=== PATIENT | male | born 1955 | race Caucasian/White ===

== ENCOUNTER 2017-09-26 09:17 | Outpatient (CLI) | payer OTHER ==
[2017-09-26] MEDS ORDERED: ALBUTEROL NEB 2.5 MG/3 ML INH ONE (10:00)
== END 2017-09-26 09:18 | disposition home or self-care (01) ==
LOC: RT 09:17
PROVIDERS: ATTEND Family Medicine
DX: R06.00 Dyspnea, unspecified (principal)
CPT/HCPCS: 94060; 94664

== ENCOUNTER 2019-10-04 07:06 | Outpatient (CLI) | payer MEDICARE, OTHER ==
[2019-10-04 12:09] LABS: BASOPHILS # (AUTO) 0.1 10^3/uL (0.0-0.1); BASOPHILS % (AUTO) 0.8 %; EOSINOPHILS # (AUTO) 0.2 10^3/uL (0.0-0.7); EOSINOPHILS % (AUTO) 3.2 %; HGB - HEMOGLOBIN 14.2 g/dL (14.0-18.0); LYMPHOCYTES % (AUTO) 33.6 %; MEAN CORPUSCULAR HEMOGLOBIN 31.8 pg (27.0-31.0); MEAN CORPUSCULAR HGB CONC 32.3 g/dL (32.0-36.0); MEAN CORPUSCULAR VOLUME 98.7 fL (80.0-94.0); MEAN PLATELET VOLUME 11.4 fL (7.4-11.4); MONOCYTES # (AUTO) 0.6 10^3/uL (0.0-1.0); MONOCYTES % (AUTO) 9.2 %; NEUTROPHILS # (AUTO) 3.1 10^3/uL (1.5-6.6); NEUTROPHILS % (AUTO) 50.9 %; PLT - PLATELET COUNT 217 10^3/uL (130-450); RED BLOOD COUNT 4.46 10^6/uL (4.70-6.10); RED CELL DISTRIBUTION WIDTH 13.6 % (12.0-15.0)
[2019-10-04 12:43] LABS: ALBUMIN 4.6 g/dL (3.2-5.5); ALBUMIN/GLOBULIN RATIO 1.6 (1.0-2.2); ALKALINE PHOSPHATASE 65 IU/L (42-121); ALT ALANINE AMINOTRANSFERASE 61 IU/L (10-60); AST ASPARTATE AMINOTRANSFERASE 33 IU/L (10-42); BUN - BLOOD UREA NITROGEN 26 mg/dL (6-20); CALCIUM 9.2 mg/dL (8.5-10.3); CARBON DIOXIDE - CO2 27 mmol/L (21-32); CHLORIDE 101 mmol/L (101-111); CHOL/HDL RATIO 5.6 (<5.0); CHOLESTEROL 250 mg/dL; CREATININE 1.1 mg/dL (0.6-1.2); GLUCOSE 179 mg/dL (70-100); HB2 TOTAL 15.4 g/dL; HDL CHOLESTEROL 45 mg/dL; HEMOGLOBIN A1C 0.76 g/dL; HEMOGLOBIN A1C % 6.7 % (4.6-6.2); LDL CHOLESTEROL,CALCULATED 153 mg/dL; LDL/HDL RATIO 3.4 (<3.6); SODIUM 137 mmol/L (135-145); TOTAL PROTEIN 7.4 g/dL (6.7-8.2); VLDL CHOLESTEROL 52 mg/dL
[2019-10-04 13:24] LABS: FREE T4 (FREE THYROXINE) 0.78 ng/dL (0.58-1.64)
== END 2019-10-04 23:59 | disposition home or self-care (01) ==
LOC: LAB.WCP 07:06
PROVIDERS: ATTEND Nurse Practitioner Family
DX: E11.9 Type 2 diabetes mellitus without complications (principal)
CPT/HCPCS: 36415; 80053; 80061; 83036; 83721; 84439; 84443; 85025

== ENCOUNTER 2019-11-10 12:26 | Outpatient (CLI) | payer MEDICARE, OTHER ==
--- NOTE | 2019-11-10 14:07 | CT Report ---
PROCEDURE: CHEST WO INDICATIONS: SHORTNESS OF BREATH, COUGH,COPD TECHNIQUE: Noncontrast 5 mm thick sections acquired from the pulmonary apices to the posterior costophrenic angl es. 7 mm thick coronal and sagittal MIP reformats were then acquired. For radiation dose reduction, the following was used: automated exposure control, adjustment of mA and/or kV according to patient size. COMPARISON: None. FINDINGS: Image quality: Excellent. Lungs and pleura: No acute consolidation. There is severe diffuse bilateral scarring/atelectasis and upper lobe paraseptal emphysema. There are possible areas of early honeycombing seen within the post erior sulci bilaterally. Diffuse peribronchial cuffing suggestive of nonspecific bronchitis and/or reactive airways disease. No pleural effusions or pneumothorax. Central and peripheral airways are patent and normal in calibe r. Mediastinum: Heart size is normal. No pericardial effusion. No mediastinal adenopathy by size crit eria. Thoracic aorta and central pulmonary arteries are normal in size. Esophagus is normal in ginger emely. No hiatal hernia. Bones and chest wall: No suspicious bony lesions. No vertebral body compression fractures. No axil donna or supraclavicular adenopathy by size criteria. The thyroid is normal in size. Hepatic steatosis. IMPRESSION: Severe diffuse interstitial changes, with centrilobular and paraseptal emphysema. Possible areas of e olivier honeycombing seen within both posterior sulci raising the possibility of usual interstitial pneu monia. Comparison with prior studies if obtainable would be helpful, or continued surveillance with C T to assess progression over time. No acute consolidation Reviewed by: Rafi Rider MD on 11/10/2019 2:06 PM PDT Approved by: Rafi Rider MD on 11/10/2019 2:06 PM PDT Station ID: [id number]
== END 2019-11-10 12:27 | disposition home or self-care (01) ==
LOC: DI 12:26
PROVIDERS: ATTEND Nurse Practitioner Family
DX: J43.2 Centrilobular emphysema (principal); Z87.891 Personal history of nicotine dependence; R05 Cough
CPT/HCPCS: 71250

== ENCOUNTER 2020-04-17 07:00 | Outpatient (CLI) | payer MEDICARE, OTHER | END 2020-04-17 23:59 | disposition home or self-care (01) | LOC: COV 07:00 | PROVIDERS: ATTEND Family Medicine | DX: R05 Cough (principal); R06.00 Dyspnea, unspecified; J34.89 Other specified disorders of nose and nasal sinuses; Z20.822 Contact with and (suspected) exposure to COVID-19 ==

== ENCOUNTER 2020-05-03 08:00 | Outpatient (CLI) | payer MEDICARE, OTHER ==
[2020-05-03 18:30] LABS: CALCIUM 9.4 mg/dL (8.5-10.3)
[2020-05-03 19:28] LABS: FREE T4 (FREE THYROXINE) 0.79 ng/dL (0.58-1.64)
[2020-05-03 21:15] LABS: HEMOGLOBIN A1c% 8.6 % (4.27-6.07)
== END 2020-05-03 23:59 | disposition home or self-care (01) ==
LOC: LAB.WCP 08:00
PROVIDERS: ATTEND Nurse Practitioner Family
DX: E11.9 Type 2 diabetes mellitus without complications (principal); R94.6 Abnormal results of thyroid function studies
CPT/HCPCS: 36415; 80048; 83036; 84439; 84443

== ENCOUNTER 2020-05-16 09:22 | Outpatient (CLI) | payer MEDICARE, OTHER ==
--- NOTE | 2020-05-16 17:13 | CT Report ---
PROCEDURE: CHEST WO INDICATIONS: SOB, COUGH, COPD TECHNIQUE: Noncontrast 5 mm thick sections acquired from the pulmonary apices to the posterior costophrenic angl es. 7 mm thick coronal and sagittal MIP reformats were then acquired. For radiation dose reduction, the following was used: automated exposure control, adjustment of mA and/or kV according to patient size. COMPARISON: 11/10/2019 FINDINGS: Image quality: Excellent. Lungs and pleura: No significant change. Advanced centrilobular emphysema. Bibasilar pulmonary fibro sis. No acute airspace consolidation. No suspicious pulmonary nodules. No pleural effusions or pneumo thorax. Central and peripheral airways are patent and normal in caliber. Mediastinum: Heart size is normal. No pericardial effusion. No mediastinal adenopathy by size crit eria. Thoracic aorta and central pulmonary arteries are normal in size. Esophagus is normal in ginger emely. No hiatal hernia. Bones and chest wall: No suspicious bony lesions. No vertebral body compression fractures. No axil donna or supraclavicular adenopathy by size criteria. The thyroid is normal in size. Abdomen: Visualized upper abdominal solid organs and bowel loops demonstrate moderately severe hepat ic steatosis. No other significant findings identified in visualized upper abdominal structures. IMPRESSION: 1. Advanced centrilobular emphysema. 2. Bibasilar pulmonary fibrosis. 3. No significant interval change. 4. No current findings suspicious for malignancy in the chest. Comment: Consider yearly screening lung CT in this individual. Reviewed by: Glenn Vivas MD on 05/16/2020 5:11 PM PST Approved by: Glenn Vivas MD on 05/16/2020 5:11 PM PST Station ID: [id number]
== END 2020-05-16 09:23 | disposition home or self-care (01) ==
LOC: DI 09:22
PROVIDERS: ATTEND Nurse Practitioner Family
DX: J43.2 Centrilobular emphysema (principal); J84.10 Pulmonary fibrosis, unspecified

== ENCOUNTER 2020-05-19 09:13 | Outpatient (CLI) | payer MEDICARE, OTHER ==
[2020-05-19] MEDS ORDERED: ALBUTEROL 1 PUFF INH STA (12:12)
== END 2020-05-19 09:14 | disposition home or self-care (01) ==
LOC: RT 09:13
PROVIDERS: ATTEND Nurse Practitioner Family
DX: J44.9 Chronic obstructive pulmonary disease, unspecified (principal)
CPT/HCPCS: 94060; 94729

== ENCOUNTER 2020-06-21 10:18 | Outpatient (CLI) | payer MEDICARE, OTHER | END 2020-06-21 10:19 | disposition home or self-care (01) | LOC: DI 10:18 | PROVIDERS: ATTEND Internal Medicine Pulmonary Disease | DX: J43.2 Centrilobular emphysema (principal) | CPT/HCPCS: 93306 ==

== ENCOUNTER 2020-07-17 08:00 | Outpatient (CLI) | payer MEDICARE, OTHER ==
[2020-07-17 12:14] LABS: ALBUMIN 4.4 g/dL (3.2-5.5); ALBUMIN/GLOBULIN RATIO 1.4 (1.0-2.2); ALKALINE PHOSPHATASE 58 IU/L (42-121); ALT ALANINE AMINOTRANSFERASE 61 IU/L (10-60); AST ASPARTATE AMINOTRANSFERASE 40 IU/L (10-42); BUN - BLOOD UREA NITROGEN 18 mg/dL (6-20); CALCIUM 9.8 mg/dL (8.5-10.3); CARBON DIOXIDE - CO2 28 mmol/L (21-32); CHLORIDE 101 mmol/L (101-111); CHOL/HDL RATIO 5.7 (<5.0); CHOLESTEROL 246 mg/dL; GFR - MDRD 75 (>89); GLUCOSE 188 mg/dL (70-100); HDL CHOLESTEROL 43 mg/dL; LDL CHOLESTEROL,CALCULATED 164 mg/dL; LDL/HDL RATIO 3.8 (<3.6); POTASSIUM 4.7 mmol/L (3.5-5.0); SODIUM 141 mmol/L (135-145); TOTAL PROTEIN 7.5 g/dL (6.7-8.2); TRIGLYCERIDES 195 mg/dL; VLDL CHOLESTEROL 39 mg/dL
[2020-07-17 12:18] LABS: BASOPHILS # (AUTO) 0.1 10^3/uL (0.0-0.1); BASOPHILS % (AUTO) 0.8 %; EOSINOPHILS # (AUTO) 0.3 10^3/uL (0.0-0.7); EOSINOPHILS % (AUTO) 4.1 %; HCT - HEMATOCRIT 42.9 % (42.0-52.0); HGB - HEMOGLOBIN 14.5 g/dL (14.0-18.0); LYMPHOCYTES # (AUTO) 1.8 10^3/uL (1.5-3.5); LYMPHOCYTES % (AUTO) 28.7 %; MEAN CORPUSCULAR HGB CONC 33.8 g/dL (32.0-36.0); MEAN CORPUSCULAR VOLUME 100.5 fL (80.0-94.0); MEAN PLATELET VOLUME 11.2 fL (7.4-11.4); MONOCYTES # (AUTO) 0.6 10^3/uL (0.0-1.0); MONOCYTES % (AUTO) 9.9 %; NEUTROPHILS # (AUTO) 3.4 10^3/uL (1.5-6.6); NEUTROPHILS % (AUTO) 54.9 %; PLT - PLATELET COUNT 213 10^3/uL (130-450); RED BLOOD COUNT 4.27 10^6/uL (4.70-6.10); RED CELL DISTRIBUTION WIDTH 12.6 % (12.0-15.0); WHITE BLOOD COUNT 6.1 x10^3/uL (4.8-10.8)
[2020-07-17 12:23] LABS: ESTIMATED AVERAGE GLUCOSE 180 mg/dL (70-100); HEMOGLOBIN A1c% 7.9 % (4.27-6.07)
[2020-07-17 12:24] LABS: THYROID STIMULATING HORMONE 6.05 uIU/mL (0.34-5.60)
[2020-07-17 13:01] LABS: FREE T4 (FREE THYROXINE) 0.83 ng/dL (0.58-1.64)
== END 2020-07-17 23:59 | disposition home or self-care (01) ==
LOC: LAB.WCP 08:00
PROVIDERS: ATTEND Nurse Practitioner Family
DX: E78.5 Hyperlipidemia, unspecified (principal); E11.9 Type 2 diabetes mellitus without complications; R94.6 Abnormal results of thyroid function studies
CPT/HCPCS: 36415; 80053; 80061; 83036; 83721; 84439; 84443; 85025

== ENCOUNTER 2020-09-01 19:50 | Outpatient (CLI) | payer MEDICARE, OTHER | END 2020-09-01 19:51 | disposition critical access hospital (66) | LOC: EMS 19:50 | DX: S01.21XA Laceration without foreign body of nose, initial encounter (principal); W18.30XA Fall on same level, unspecified, initial encounter; Y93.89 Activity, other specified; Y92.008 Other place in unspecified non-institutional (private) residence as the place of occurrence of the external cause | CPT/HCPCS: A0425; A0429 ==

== ENCOUNTER 2020-09-01 20:06 | Emergency (ER) | payer MEDICARE, OTHER ==
[2020-09-01 20:40] LABS: BASOPHILS # (AUTO) 0.1 10^3/uL (0.0-0.1); BASOPHILS % (AUTO) 0.8 %; EOSINOPHILS # (AUTO) 0.3 10^3/uL (0.0-0.7); EOSINOPHILS % (AUTO) 4.3 %; HCT - HEMATOCRIT 41.6 % (42.0-52.0); HGB - HEMOGLOBIN 14.5 g/dL (14.0-18.0); LYMPHOCYTES # (AUTO) 2.5 10^3/uL (1.5-3.5); LYMPHOCYTES % (AUTO) 41.4 %; MEAN CORPUSCULAR HEMOGLOBIN 34.5 pg (27.0-31.0); MEAN CORPUSCULAR HGB CONC 34.9 g/dL (32.0-36.0); MEAN PLATELET VOLUME 10.3 fL (7.4-11.4); MONOCYTES # (AUTO) 0.6 10^3/uL (0.0-1.0); MONOCYTES % (AUTO) 10.1 %; NEUTROPHILS # (AUTO) 2.5 10^3/uL (1.5-6.6); NEUTROPHILS % (AUTO) 40.9 %; PLT - PLATELET COUNT 210 10^3/uL (130-450); RED CELL DISTRIBUTION WIDTH 12.4 % (12.0-15.0); WHITE BLOOD COUNT 6.1 x10^3/uL (4.8-10.8)
[2020-09-01] MEDS ORDERED: BACITRACIN ZINC OINT 1 PACKET TOP STA (20:41)
--- NOTE | 2020-09-01 20:45 | ED Physician Documentation ---
History of Present Illness - Stated complaint Stated Complaint: GLF/ HEAD INJ - Chief complaint Chief Complaint: Trauma Hd/Nk - History obtained from History obtained from: Patient - History of Present Illness Timing: Today Pain level max: 7 Pain level now: 5 - Additonal information Additional information: Patient is a 65-year-old male who states that he was at home today when he tripped fell and landed on his face. He states he drinks 1 "50-50 vodka and water" earlier today. He is unsure if he lost consciousness or not. He does have a history of pulmonary fibrosis. No cardiac history. No chest pain. No increased shortness of breath from baseline. No vomiting. Has an abrasion to the bridge of the nose. Tetanus is up-to-date Review of Systems Ten Systems: 10 systems reviewed and negative Constitutional: denies: Fever, Chills Throat: denies: Sore throat Cardiac: denies: Chest pain / pressure, Palpitations Respiratory: denies: Dyspnea, Cough, Wheezing GI: denies: Abdominal Pain, Nausea, Vomiting, Diarrhea Skin: denies: Rash Musculoskeletal: denies: Neck pain, Back pain Neurologic: denies: Headache PD PAST MEDICAL HISTORY - Past Medical History Cardiovascular: High cholesterol Respiratory: COPD Endocrine/Autoimmune: Type 2 diabetes - Past Surgical History Past Surgical History: No Neuro: Other - Present Medications Home Medications: Ambulatory Orders Medication Instructions Recorded Confirmed Albuterol Sulfate [Proair Hfa 2 puffs IH Q4HR PRN 09/01/20 09/01/20 Inhaler] Atorvastatin [Lipitor] 10 mg PO DAILY 09/01/20 09/01/20 Fluticasone/Salmeterol [Advair 2 puffs IH BID 09/01/20 09/01/20 500-50 Diskus] Lisinopril [Zestril] 2.5 mg PO DAILY 09/01/20 09/01/20 Metformin HCl [Metformin ER 1,000 mg PO BID 09/01/20 09/01/20 Osmotic] Omeprazole [PriLOSEC] 20 mg PO DAILY 09/01/20 09/01/20 Ubidecarenone [Co Q-10] 400 mg PO DAILY 09/01/20 09/01/20 - Allergies Allergies/Adverse Reactions: Allergies Allergy/AdvReac Type Severity Reaction Status Date / Time No Known Drug Allergies Allergy Verified 09/01/20 20:19 - Social History Does the pt smoke?: No Smoking Status: Former smoker Does the pt drink ETOH?: Yes Does the pt have substance abuse?: No - Immunizations Immunizations are current?: Yes PD ED PE NORMAL - Vitals Vital signs reviewed: Yes - General General: Alert and oriented X 3, No acute distress, Well developed/nourished, Other (+etoh) - HEENT HEENT: PERRL, Moist mucous membranes, Pharynx benign, Other (abrasion to the bridge of the nose. 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5 H MCHC 34.9 RDW 12.4 Plt Count 210 MPV 10.3 Neut # (Auto) 2.5 Lymph # (Auto) 2.5 [place] # (Auto) 0.6 Eos # (Auto) 0.3 Baso # (Auto) 0.1 Absolute Nucleated RBC 0.00 Nucleated RBC % 0.0 Sodium 138 Potassium 4.0 Chloride 104 Carbon Dioxide 22 Anion Gap 12.0 BUN 16 Creatinine 1.0 Estimated GFR (MDRD) 75 L Glucose 142 H Calcium 9.0 Total Bilirubin 0.8 AST 74 H ALT 106 H Alkaline Phosphatase 58 Total Protein 7.5 Albumin 4.5 Globulin 3.0 Albumin/Globulin Ratio 1.5 Lipase 25 Ethyl Alcohol 201.3 - Rads (name of study) CT head Radiology: Prelim report reviewed, EMP read contemporaneously, See rad report (CT head without acute intracranial abnormalities. Postoperative changes of right sided craniotomy. ) ct maxillofacial Radiology: Prelim report reviewed, EMP read contemporaneously, See rad report (1. Possible nondisplaced fracture involving the root of the bilateral maxillary premolar teeth. 2. Dental caries surrounding the left maxillary molar tooth. 3. No other acute fractures identified ) ct c-spine Radiology: Prelim report reviewed, EMP read contemporaneously, See rad report (Cervical spine without acute fracture. Moderate multilevel cervical spondylosis most pronounced from C4-5 through C7-T1. Straightening of cervical lordosis likely related to patient positioning and/or concurrent muscle spasms. ) PD MEDICAL DECISION MAKING - ED course Complexity details: reviewed results, re-evaluated patient, gonzalez kathrine rene, d/w patient, d/w family ED course: 65-year-old male with a ground-level fall today. No significant lab abnormalities other than alcohol intoxication. Abrasion over the bridge of the nose was repaired with Dermabond. Tolerated well. Wound was cleansed and bandaged. Ambulating without difficulty. We'll have him follow-up with his doctor for further care. Patient will follow up with his dentist for the dental caries that were found on maxillofacial CT. Patient and family counseled regarding signs and symptoms for which I believe and urgent re-evaluation would be necessary. Patient with good understanding of and agreement to plan and is comfortable going home at this time This document was made in part using voice recognition software. While efforts are made to proofread this document, sound alike and grammatical errors may occur. Departure - Departure Disposition: 01 Home, Self Care Clinical Impression: Fall from ground level, Dental cavities Nasal abrasion Qualifiers: Encounter type: initial encounter Qualified Code(s): S00.31XA - Abrasion of nose, initial encounter Alcohol intoxication Qualifiers: Complication of substance-induced condition: uncomplicated Qualified Code(s): F10.920 - Alcohol use, unspecified with intoxication, uncomplicated Condition: Good Instructions: ED Abrasion, ED Cavity Dental, ED Alcohol Intoxication Follow-Up: TIM JEREZ, MSN, AUXILIARY PLANT OPERATOR [Primary Care Provider] - Comments: Your CT scans do not show any acute abnormalities other than dental caries surrounding the left maxillary molar tooth. No other acute fractures. Follow-up with your dentist for the dental caries. Return if you worsen. The abrasion on your nose should heal on its own. The glue will fall off on its own. Do not apply ointment until the glue has fallen off. Discharge Date/Time: 09/01/20 22:23
[2020-09-01 20:50] LABS: ALBUMIN 4.5 g/dL (3.2-5.5); ALBUMIN/GLOBULIN RATIO 1.5 (1.0-2.2); BILIRUBIN,TOTAL 0.8 mg/dL (0.2-1.0); ETOH - ETHANOL 201.3 mg/dL; TOTAL PROTEIN 7.5 g/dL (6.7-8.2)
--- NOTE | 2020-09-01 21:47 | CT Report ---
PROCEDURE: HEAD WO INDICATIONS: fall, head injury TECHNIQUE: Noncontrast 4.5 mm thick angled axial sections acquired from the foramen magnum to the vertex. For r adiation dose reduction, the following was used: automated exposure control, adjustment of mA and/or kV according to patient size. COMPARISON: Prior examinations cannot be secondary to technical issues. FINDINGS: Image quality: Diagnostic. CSF spaces: Basal cisterns are patent. No extra-axial fluid collections. Ventricles are normal in size and shape. Brain: No midline shift. No intracranial masses or hemorrhage. Castillo-white matter interface is norm al. Skull and face: There are postsurgical changes from right craniotomy involving the frontal, parietal , temporal regions. Calvarial fractures. Limited evaluation facial bones are intact, without suspicio us lesions. Sinuses: Visualized sinuses and mastoids are clear. IMPRESSION: CT head without acute intracranial abnormalities. Postoperative changes of right sided craniotomy. No acute calvarial fractures. Reviewed by: Toro Reed MD on 09/01/2020 9:46 PM PDT Approved by: Toro Reed MD on 09/01/2020 9:46 PM PDT Station ID: [id number]
--- NOTE | 2020-09-01 21:50 | CT Report ---
PROCEDURE: CERVICAL SPINE WO INDICATIONS: fall, neck injury TECHNIQUE: Noncontrast 3 mm thick sections acquired from the skull base to the T4 level. Sagittal and coronal r eformats were then constructed. For radiation dose reduction, the following was used: automated exp osure control, adjustment of mA and/or kV according to patient size. COMPARISON: None. FINDINGS: Image quality: Excellent. Bones: No acute compression fractures of the cervical spine. Multilevel cervical spondylosis most pro nounced from C4-5 through C7-T1. Straightening of cervical lordosis. Craniocervical junction is intac t. C1-C2 relationship is preserved. Facets are well aligned. Visualized superior ribs are intact. Soft tissues: Prevertebral soft tissues are normal in thickness. No paravertebral hematomas. No ap ical pneumothoraces. IMPRESSION: Cervical spine without acute fracture. Moderate multilevel cervical spondylosis most pronounced from C4-5 through C7-T1. Straightening of cervical lordosis likely related to patient positioning and/or concurrent muscle spa sms. Reviewed by: Toro Reed MD on 09/01/2020 9:48 PM PDT Approved by: Toro Reed MD on 09/01/2020 9:48 PM PDT Station ID: [id number]
--- NOTE | 2020-09-01 22:00 | CT Report ---
PROCEDURE: MAXILLOFACIAL WO INDICATIONS: fall, facial injuries TECHNIQUE: Noncontrast 1.5 mm thick axial images acquired from the mandible through the frontal sinuses, with co missy and sagittal reformatting. For radiation dose reduction, the following was used: automated ex posure control, adjustment of mA and/or kV according to patient size. COMPARISON: None. FINDINGS: Image quality: Excellent. Bones and teeth: Nondisplaced, fracture involving the root of the left maxillary premolar tooth best seen on sagittal image 59, series 6. There is osseous erosions surrounding the left maxillary molar tooth compatible with a dental caries. Possible nondisplaced fracture involving the root of the right maxillary premolar tooth. This is best seen on coronal image 28, series 5. Moderate degenerative christoph nges of the bilateral temporomandibular joints. Orbital salinas are intact. Sinus salinas show no fractu re or deformity. Nasal bones and septum are intact. Zygomatic arches are intact. Pterygoid plates a re intact. Visualized portions of the skull base and auditory canals are intact. Postsurgical rueda es from right craniotomy. Sinuses: Mild bilateral maxillary sinus mucosal thickening. Remainder the visualized paranasal sinus es appear well aerated. Mastoid air cells are aerated. Soft tissues: No edema, masses, or fluid collections. No enlarged lymph nodes. No soft tissue lace rations or debris. Vascular: Visualized vascular structures appear normal in the absence of contrast. Bony vascular fo ramina and canals are intact. IMPRESSION: 1. Possible nondisplaced fracture involving the root of the bilateral maxillary premolar teeth. 2. Dental caries surrounding the left maxillary molar tooth. 3. No other acute fractures identified Reviewed by: Toro Reed MD on 09/01/2020 9:59 PM PDT Approved by: Toro Reed MD on 09/01/2020 9:59 PM PDT Station ID: [id number]
[2020-09-01 22:19] VITALS: BP 127/78
== END 2020-09-01 22:23 | disposition home or self-care (01) ==
LOC: EDUNIT# → SUPCPDRO 20:06 → ED 20:06
DX: S00.31XA Abrasion of nose, initial encounter (principal); W01.0XXA Fall on same level from slipping, tripping and stumbling without subsequent striking against object, initial encounter; Y92.009 Unspecified place in unspecified non-institutional (private) residence as the place of occurrence of the external cause; F10.920 Alcohol use, unspecified with intoxication, uncomplicated; K02.9 Dental caries, unspecified; M47.12 Other spondylosis with myelopathy, cervical region; J84.10 Pulmonary fibrosis, unspecified; Z87.891 Personal history of nicotine dependence; E11.9 Type 2 diabetes mellitus without complications; Z79.84 Long term (current) use of oral hypoglycemic drugs
CPT/HCPCS: 12011; 36415; 70450; 70486; 72125; 80053; 83690; 85025; 93005; 99284; A9270; G0480; 80320

== ENCOUNTER 2020-09-19 12:26 | Outpatient (CLI) | payer MEDICARE, OTHER | END 2020-09-19 12:27 | disposition home or self-care (01) | LOC: RT 12:26 | PROVIDERS: ATTEND Internal Medicine Pulmonary Disease | DX: J43.2 Centrilobular emphysema (principal) | CPT/HCPCS: 94761 ==

== ENCOUNTER 2020-11-24 09:19 | Outpatient (CLI) | payer MEDICARE, OTHER | END 2020-11-24 09:20 | disposition critical access hospital (66) | LOC: EMS 09:19 | DX: R06.00 Dyspnea, unspecified (principal) | CPT/HCPCS: A0425; A0429 ==

== ENCOUNTER 2020-11-24 09:38 | Inpatient (IN) | payer MEDICARE, OTHER ==
--- NOTE | 2020-11-24 09:50 | ED Physician Documentation ---
PD HPI DYSPNEA - Stated complaint Stated Complaint: C+ - Chief complaint Chief Complaint: Resp - History obtained from History obtained from: Patient - History of Present Illness Timing - onset: How many weeks ago (1) Timing - onset during: Rest Timing - duration: Weeks (1) Timing - details: Gradual onset, Still present Inciting event(s): URI Improved by: O2, Inhaler/neb Worsened by: Exertion, Coughing Associated symptoms: Cough, Hemoptysis, Wheezing. No: Fever, Chest pain / discomfort, Bilateral edema, Unilateral edema Similar symptoms before: Diagnosis (COPD and COVID) Recently seen: Emergency Dept - Additional information Additional information: 65-year-old male who was vaccinated with [employer] in September of this year got into the car with his 2 children drove from [facility] to [facility]. He states that when he got into the [facility] he began to have some difficulty with his breathing and he was evaluated in the emergency department with a bloody nose he was found to be hypoxic and his Covid swab was positive. He has been put on oxygen as an outpatient and he is traveled back home. He is having more trouble now with a cough producing more and more sputum he has had some blood-tinged sputum and this morning he was having difficulty getting any air. He was not able to keep his saturation above 90 with 3 L nasal cannula. Review of Systems Constitutional: reports: Myalgias, Fatigue, Sweats. denies: Fever Eyes: denies: Decreased vision Ears: denies: Ear pain Nose: reports: Congestion Throat: denies: Sore throat Cardiac: denies: Chest pain / pressure, Palpitations Respiratory: reports: Dyspnea, Cough, Wheezing GI: denies: Nausea, Vomiting : denies: Dysuria, Frequency Skin: denies: Rash Musculoskeletal: denies: Neck pain, Back pain, Extremity pain Neurologic: reports: Generalized weakness. denies: Focal weakness, Numbness PD PAST MEDICAL HISTORY - Past Medical History Cardiovascular: High cholesterol Respiratory: COPD Endocrine/Autoimmune: Type 2 diabetes - Past Surgical History Past Surgical History: No Neuro: Other - Present Medications Home Medications: Ambulatory Orders Medication Instructions Recorded Confirmed Albuterol Sulfate [Proair Hfa 2 puffs IH Q4HR PRN 09/01/20 09/01/20 Inhaler] Atorvastatin [Lipitor] 10 mg PO DAILY 09/01/20 09/01/20 Fluticasone/Salmeterol [Advair 2 puffs IH BID 09/01/20 09/01/20 500-50 Diskus] Lisinopril [Zestril] 2.5 mg PO DAILY 09/01/20 09/01/20 Metformin HCl [Metformin ER 1,000 mg PO BID 09/01/20 09/01/20 Osmotic] Omeprazole [PriLOSEC] 20 mg PO DAILY 09/01/20 09/01/20 Ubidecarenone [Co Q-10] 400 mg PO DAILY 09/01/20 09/01/20 - Allergies Allergies/Adverse Reactions: Allergies Allergy/AdvReac Type Severity Reaction Status Date / Time No Known Drug Allergies Allergy Verified 09/01/20 20:19 - Social History Does the pt smoke?: No Smoking Status: Former smoker Does the pt drink ETOH?: Yes Does the pt have substance abuse?: No - Immunizations Immunizations are current?: Yes PD ED PE NORMAL - Vitals Vital signs reviewed: Yes (tachy, tachypneic, hypertensive and hypoxic) - General General: Alert and oriented X 3, Well developed/nourished, Other (flush appearing 65 y/o male struggling for breath is able to speak in multi-word sentences. ) - HEENT HEENT: Atraumatic, PERRL, EOMI, Other (dry mucous membranes ) - Neck Neck: Supple, no meningeal sign, No bony TTP - Cardiac Cardiac: RRR, No murmur - Respiratory Respiratory: No respiratory distress, Other (crackles to the bases bilaterally ) - Abdomen Abdomen: Soft, Non tender - Back Back: No CVA TTP, No spinal TTP - Derm Derm: Normal color, Warm and dry, No rash - Extremities Extremities: No deformity, No edema, No calf tenderness / cord - Neuro Neuro: Alert and oriented X 3, manager plan 2-12 intact, No motor deficit, No sensory deficit, Normal speech Eye Opening: Spontaneous Motor: Obeys Commands Verbal: Oriented GCS Score: 15 - Psych Psych: Normal mood, Normal affect Results - Vitals Vitals: Vital Signs - 24 hr 11/24/20 09:41 Heart Rate 108 H Respiratory 27 H Rate Blood Pressure 138/82 H O2 Saturation 85 L Oxygen O2 Source Room air - Labs Labs: Laboratory Tests 09/10/21 09/10/21 09/10/21 10:10 10:10 10:10 WBC 7.1 RBC 4.22 L Hgb 14.1 Hct 39.9 L MCV 94.5 H MCH 33.4 H MCHC 35.3 RDW 12.2 Plt Count 164 MPV 10.1 Neut # (Auto) 5.9 Lymph # (Auto) 0.8 L [place] # (Auto) 0.3 Eos # (Auto) 0.0 Baso # (Auto) 0.0 Absolute Nucleated RBC 0.00 Nucleated RBC % 0.0 Sodium 136 Potassium 4.0 Chloride 100 L Carbon Dioxide 22 Anion Gap 14.0 H BUN 27 H Creatinine 1.1 Estimated GFR (MDRD) 67 L Glucose 154 H Lactic Acid 1.0 Calcium 9.0 Total Bilirubin 0.9 AST 43 H ALT 60 Alkaline Phosphatase 51 Total Protein 7.7 Albumin 3.8 Globulin 3.9 Albumin/Globulin Ratio 1.0 Lipase 50 - Rads (name of study) chest Radiology: Prelim report reviewed (Impression: 1. Bibasilar reticular interstitial opacities likely corresponding to chronic emphysematous and interstitial changes seen on prior CT. However if there is clinical suspicion for superimposed acute process, further evaluation is recommended with a CT.), EMP read indepedently (Looks like Covid pneumonia), See rad report PD MEDICAL DECISION MAKING - ED course Complexity details: reviewed old records, reviewed results, re-evaluated patient, considered differential, d/w patient ED course: 65-year-old male with a history of COPD who normally uses albuterol and at [facility] has developed Covid and has Covid pneumonia on his chest x-ray today. He is having worsening symptoms with hypoxia and is no longer able to keep up with oxygen requirements with oxygen available at home. At 4 L nasal cannula he is now up to 90%. Departure - Departure Disposition: 65 [facility] DC/Xfer Clinical Impression: Pneumonia due to COVID-19 virus
[2020-11-24 10:19] LABS: BASOPHILS % (AUTO) 0.1 %; HCT - HEMATOCRIT 39.9 % (42.0-52.0); HGB - HEMOGLOBIN 14.1 g/dL (14.0-18.0); LYMPHOCYTES # (AUTO) 0.8 10^3/uL (1.5-3.5); LYMPHOCYTES % (AUTO) 11.5 %; MEAN CORPUSCULAR HEMOGLOBIN 33.4 pg (27.0-31.0); MEAN CORPUSCULAR HGB CONC 35.3 g/dL (32.0-36.0); MEAN CORPUSCULAR VOLUME 94.5 fL (80.0-94.0); MEAN PLATELET VOLUME 10.1 fL (7.4-11.4); MONOCYTES # (AUTO) 0.3 10^3/uL (0.0-1.0); MONOCYTES % (AUTO) 4.7 %; NEUTROPHILS # (AUTO) 5.9 10^3/uL (1.5-6.6); NEUTROPHILS % (AUTO) 82.9 %; PLT - PLATELET COUNT 164 10^3/uL (130-450); RED BLOOD COUNT 4.22 10^6/uL (4.70-6.10); RED CELL DISTRIBUTION WIDTH 12.2 % (12.0-15.0); WHITE BLOOD COUNT 7.1 x10^3/uL (4.8-10.8)
--- NOTE | 2020-11-24 10:22 | XRAY Report ---
PROCEDURE: Chest 1 View X-Ray INDICATIONS: chest pain TECHNIQUE: One view of the chest was acquired. COMPARISON: CT chest 05/16/2020. FINDINGS: Surgical changes and devices: None. Lungs and pleura: There are reticular interstitial opacities within the lung bases corresponding to emphysematous changes and septal thickening in the lung bases on the prior CT. No definite focal cons olidation. No pleural effusions or pneumothorax. Mediastinum: Mediastinal contours appear normal. Heart size is normal. Bones and chest wall: No suspicious bony lesions. Overlying soft tissues appear unremarkable. IMPRESSION: 1. Bibasilar reticular interstitial opacities likely corresponding to chronic emphysematous and inter stitial changes seen on the prior CT. However if there is clinical suspicion for a superimposed acute process, further evaluation is recommended with a CT. Reviewed by: Tigre Sandra MD on 11/24/2020 10:21 AM PDT Approved by: Tigre Sandra MD on 11/24/2020 10:21 AM PDT Station ID: [id number]
[2020-11-24 10:33] LABS: ALBUMIN 3.8 g/dL (3.2-5.5); BILIRUBIN,TOTAL 0.9 mg/dL (0.2-1.0); CREATININE 1.1 mg/dL (0.6-1.2); TOTAL PROTEIN 7.7 g/dL (6.7-8.2)
[2020-11-24] MEDS ORDERED: ONDANSETRON 4 MG/2 ML VIAL IVP PRN (11:22)
[2020-11-24] MEDS ORDERED: SODIUM CHLORIDE FLUSH 0.9% 10 ML SYRINGE IVP PRN (11:22)
[2020-11-24] MEDS ORDERED: ACETAMINOPHEN 325 MG TABLET PO PRN (11:22)
[2020-11-24] MEDS ORDERED: guaiFENesin 100 MG/5 ML UDC PO PRN (11:36)
--- NOTE | 2020-11-24 12:02 | HISTORY & PHYSICAL EXAMINATION ---
Chief Complaint - Chief Complaint Chief Complaint: SOB, cough, COVID (+) History of Present Illness - Admitted From Admitted From:: ED - History Obtained From History obtained from: ED provider and the patient - History of Present Illness HPI Comment/Other: This is a 65 y/o white male with a Hx of pulmonary fibrosis, sleep apnea on CPAP, HTN and NIDDM. He has been vaccinated for COVID with the [employer] form in September (2 mos ago). He has a [place], Dr Maddy Harrington, in [place]. He recently went on a car trip with his 2 adult children to [facility] and [place], [place], where he developed SOB and 2 nose bleeds and went to an ER in [place], [place], where he tested positive for COVID, but was discharged from their ER with "a medicine to help him cough" and new home oxygen. He was advised to return home and quarantine. He tried to stay apart from the 2 children and they all wore masks in the car, and he got home last night, where he was kept isolated from his . He had PND last night and presented to our ER today with c/o worsened SOB and reported he was desaturating to 76% (per his home oximeter), despite being on O2 per n.c. at 3L. He was desaturating to 85% on room air in the ER. His CXR showed bibasilar interstitial changes and emphysematous changes. He is being admitted for COVID pneumonia with hypoxia. He would like to be a FULL CODE, per my discussion with him today. 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 Social History Notes: He quit smoking about 20 years ago. He drinks alcohol occaisionally, no abuse Hx. He uses no recreational drugs. He works part-time as a book kepper, works from home. - Substance History Use: Uses substance without health or social issues: Alcohol - POLST Patient has POLST: No Meds/Allgy - Home Medications Home Medications: Ambulatory Orders Medication Instructions Recorded Confirmed Albuterol Sulfate [Proair Hfa 2 puffs IH Q4HR PRN 09/01/20 11/24/20 Inhaler] Atorvastatin [Lipitor] 10 mg PO DAILY 09/01/20 11/24/20 Fluticasone/Salmeterol [Advair 1 puffs INH BID 09/01/20 11/24/20 500-50 Diskus] Lisinopril [Zestril] 2.5 mg PO DAILY 09/01/20 11/24/20 Metformin HCl [Metformin ER 1,000 mg PO BID 09/01/20 11/24/20 Osmotic] Omeprazole [PriLOSEC] 20 mg PO DAILY 09/01/20 11/24/20 Ubidecarenone [Co Q-10] 400 mg PO DAILY 09/01/20 11/24/20 Dexamethasone [Decadron] 6 mg PO DAILY 11/24/20 11/24/20 - Allergies Allergies/Adverse Reactions: Allergies Allergy/AdvReac Type Severity Reaction Status Date / Time No Known Drug Allergies Allergy Verified 09/01/20 20:19 Review of Systems - Constitutional Constitutional: reports: Chills - Respiratory Respiratory: reports: Cough, Orthopnea, SOB at rest - All Other Systems All Other Systems: reports: Reviewed and negative Exam - Vital Signs Vital Signs: Vital Signs x48h Pulse Resp BP Pulse Ox 11/24/20 09:41 108 H 27 H 138/82 H 85 L - Physical Exam General Appearance: positive: No acute distress, Mild distress (Intermittently tachypneic while speaking) Eyes Bilateral: positive: Normal inspection, PERRL, EOMI ENT: positive: Pharynx nml, No signs of dehydration Neck: positive: Nml inspection, No JVD Respiratory: positive: No respiratory distress, Breath sounds nml Cardiovascular: positive: Regular rate & rhythm, No murmur Abdomen: positive: Non-tender, Nml bowel sounds, No distention Skin: positive: Warm, Dry Extremities: positive: Non-tender, No pedal edema Neurologic/Psychiatric: positive: Oriented x3 (Non-focal) Conclusion/Plan - Problem List (1) Acute respiratory failure with hypoxia Conclusion/Plan: He had significant desaturation and is admitted for managing hypoxia. The underlying reason appears to be the COVID pneumonia on top of his pulmonary fibrosis/COPD. Will give supplemental oxygen, keeping saturations 88% or higher. Treat the COPD and COVID peumonia (2) Pneumonia due to COVID-19 virus Conclusion/Plan: He does not know where he caught it and was vccinated 2 mos ago. Will admit and start Remdesivir, Decadron, Lovenox prophylaxis and Mucinex. Order isolation. Continue his inhalers (3) Tachycardia Conclusion/Plan: Likely related to his resp distress, as there is no cardiac Hx. Will obtain an EKG Will check a set of troponins Order telemetry. (4) Pulmonary fibrosis Conclusion/Plan: He is on several inhalers. These will be ordered to continue. His oral Decadron will now be in the form of IV Decadron for Covid treatment which will also help with underlying pulmonary fibrosis. Continue with supplemental oxygen, keeping saturations greater than 88%. (5) Type 2 diabetes mellitus Conclusion/Plan: Will begin a carb controlled diet, sliding scale insulin coverage using regular insulin, check his A1c and order hypoglycemia protocol. We will hold the Metformin currently (6) HTN (hypertension) Conclusion/Plan: at this point, will stop the CARLITO-I that he is on, since it may be adding to his cough, and use an alternative BP med, such as Losartan or Amlodipine, to be started when BP is elevated, since it currently is "soft". - Lab Results Fish Bones: 11/24/20 10:10 11/24/20 10:10 - Diagnostic Imaging Results Diagnostic Imaging Results: positive: Final report reviewed - EKG Results EKG Interpreted Independently: Yes EKG Comparison: No prior EKG EKG Findings: NSR, WNL.
[2020-11-24] MEDS: INSULIN ASPART 300 UNIT/3 ML PEN SUBQ SCH ×3 (13:32→21:11)
[2020-11-24] MEDS: guaiFENesin 600 MG TABLET PO SCH ×2 (13:33→21:11)
[2020-11-24] MEDS ORDERED: REMDESIVIR 100MG VIAL 200 MG in SODIUM CHLORIDE 0.9% 250 ML IV ONE (14:00)
[2020-11-24] MEDS: SODIUM CHLORIDE FLUSH 0.9% 10 ML SYRINGE IVP SCH (17:29)
[2020-11-24 18:07] LABS: BILIRUBIN,URINE NEGATIVE (NEGATIVE); GLUCOSE, URINE (UA) 100 mg/dL (NEGATIVE); KETONES,URINE (UA) TRACE mg/dL (NEGATIVE); LEUKOCYTE ESTERASE, URINE NEGATIVE (NEGATIVE); NITRITE,URINE NEGATIVE (NEGATIVE); OCCULT BLOOD,URINE TRACE-INTA (NEGATIVE); PROTEIN,URINE 30 mg/dL (NEGATIVE); UROBILINOGEN,URINE 2 E.U./dL (NORMAL)
[2020-11-24 18:10] LABS: CLARITY,URINE CLEAR (CLEAR)
[2020-11-24 18:24] LABS: BACTERIA,URINE None Seen /HPF (None Seen); RBC,URINE 0-5 /HPF (0-5); SQUAMOUS EPITHELIAL CELL,UR RARE Squamous (<= Few); WBC,URINE 0-3 /HPF (0-3)
[2020-11-24] MEDS: ATORVASTATIN 10 MG TABLET PO SCH (21:11)
[2020-11-25 05:41] LABS: BASOPHILS % (AUTO) 0.2 %; HCT - HEMATOCRIT 41.8 % (42.0-52.0); HGB - HEMOGLOBIN 14.3 g/dL (14.0-18.0); LYMPHOCYTES # (AUTO) 1.2 10^3/uL (1.5-3.5); LYMPHOCYTES % (AUTO) 21.9 %; MEAN CORPUSCULAR HEMOGLOBIN 33.1 pg (27.0-31.0); MEAN CORPUSCULAR HGB CONC 34.2 g/dL (32.0-36.0); MEAN CORPUSCULAR VOLUME 96.8 fL (80.0-94.0); MEAN PLATELET VOLUME 9.9 fL (7.4-11.4); MONOCYTES # (AUTO) 0.4 10^3/uL (0.0-1.0); MONOCYTES % (AUTO) 7.7 %; NEUTROPHILS # (AUTO) 3.9 10^3/uL (1.5-6.6); NEUTROPHILS % (AUTO) 68.6 %; PLT - PLATELET COUNT 189 10^3/uL (130-450); RED BLOOD COUNT 4.32 10^6/uL (4.70-6.10); RED CELL DISTRIBUTION WIDTH 12.2 % (12.0-15.0); WHITE BLOOD COUNT 5.6 x10^3/uL (4.8-10.8)
[2020-11-25 05:48] LABS: CALCIUM 8.7 mg/dL (8.5-10.3); CREATININE 0.8 mg/dL (0.6-1.2); MAGNESIUM 1.9 mg/dL (1.7-2.8); POTASSIUM 4.3 mmol/L (3.5-5.0)
[2020-11-25] MEDS: PANTOPRAZOLE 40 MG TABLET PO SCH (07:05)
[2020-11-25 07:13] LABS: ESTIMATED AVERAGE GLUCOSE 157 mg/dL (70-100); HEMOGLOBIN A1c% 7.1 % (4.27-6.07)
[2020-11-25] MEDS: INSULIN ASPART 300 UNIT/3 ML PEN SUBQ SCH ×4 (08:18→21:09)
[2020-11-25] MEDS: SODIUM CHLORIDE FLUSH 0.9% 10 ML SYRINGE IVP SCH ×3 (08:22→17:03)
[2020-11-25] MEDS ORDERED: UBIDECARENONE 400 MG PO SCH (09:00)
[2020-11-25] MEDS: CHOLECALCIFEROL 5,000 UNIT CAPSULE PO SCH (09:31)
[2020-11-25] MEDS: REMDESIVIR 100MG VIAL 100 MG in SODIUM CHLORIDE 0.9% 100ML 100 ML IV SCH (09:32)
[2020-11-25] MEDS: DEXAMETHASONE 4 MG/ML VIAL IVP SCH (09:32)
[2020-11-25] MEDS: guaiFENesin 600 MG TABLET PO SCH ×2 (09:32→21:09)
[2020-11-25] MEDS: ENOXAPARIN 40 MG/0.4 ML SYRINGE SUBQ SCH (09:32)
--- NOTE | 2020-11-25 12:00 | PROVIDER PROGRESS NOTE ---
Assessment/Plan - Problem List (1) Acute respiratory failure with hypoxia Assessment/Plan: He presented with increases SOB after positive COVID test and intial home management with oxygen therapy. Has history of pulmonary fibrosis/ COPD. Pt COVID vaccinated. Today he is on oxymizer 5L/min with bedside saturation 99- 100%. Breath sounds clear, with fine inspiratory crackles in left base. Strong productive cough, using IS. Plan: Wean oxygen to keep saturations greater than 88% or higher. Monitor and treat COVID pneumonia. Monitor and treat COPD. Resume home Advir. (2) COVID-19 Assessment/Plan: Unsure of exposure to COVID but began feeling SOB while on a family road trip to [place]. Was seen in hospital there where he was given decadron po and oxygen and discharged. Presented to hospital with increased SOB and low home oxygen saturations. He was vaccinated 2 months ago. Plan: Continue Remdesivir day 2 of 5, and Decadron day 2 of 10. Continue Lovenox prophylaxis. Continue Mucinex for cough. (3) Pulmonary fibrosis Assessment/Plan: Hx of pulmonary fibrosis. On oxymizer 5L/min and tolerating well. Denies SOB and bedside oxygen saturation is 99-100%. He is on several inhalers. These will be ordered to continue. Plan: Oral Decadron changed to IV form. Continue home Advir and Albuterol. Continue to monitor bedside oxygen saturation. Administer oxygen to keep saturations greater than 88%. (4) Type 2 diabetes mellitus Assessment/Plan: Hx of DM Type II on Metformin. A1C 7.1. Plan: Carb controlled diet. Discontinue Metformin while hospitalized. Monitor glucose AC/ HS and treat per sliding scale. (5) HTN (hypertension) Assessment/Plan: History of HTN with Lisinopril for home management. Medication discontinued yesterday due to frequent side effect of cough. SBP 110-130s. Plan: Continue to monitor BP and consider adding Losrtan or Amlodipine if pt becomes hypertensive. Consider resuming lisinopril upon discharge if cough has improved and hypertensive. (6) Sleep apnea Assessment/Plan: Pt has a Hx of sleep apnea and uses home CPAP. Plan: Order home CPAP for hospital use. (7) Tachycardia Assessment/Plan: Tachycardia resolved. Admission EKG showed NSR. Today HR is NSR 80s. Tachycardia most likely due to distress of hypoxia. - Current Meds Current Meds: Current Medications Generic Name Dose Route Start Last Admin Trade Name Freq PRN Reason Stop Dose Admin Acetaminophen 650 mg 11/24/20 11:22 11/24/20 17:30 Acetaminophen 325 Mg Tablet PO 650 mg Q4HR PRN Administration Pain or Fever > 38C (100.4F) Atorvastatin Calcium 10 mg 11/24/20 21:00 11/24/20 21:11 Atorvastatin 10 Mg Tablet PO 10 mg QPM JESUS Administration Cholecalciferol 5,000 unit 11/25/20 09:00 11/25/20 09:31 Cholecalciferol 5,000 Unit Capsule PO 5,000 unit DAILY JESUS Administration Dexamethasone 6 mg 11/25/20 09:00 11/25/20 09:32 Dexamethasone 4 Mg/Ml Vial IVP 6 mg DAILY JESUS Administration Enoxaparin Sodium 40 mg 11/25/20 09:00 11/25/20 09:32 Enoxaparin 40 Mg/0.4 Ml Syringe SUBQ 40 mg DAILY JESUS Administration Guaifenesin 600 mg 11/24/20 14:00 11/25/20 09:32 Guaifenesin 600 Mg Tablet PO 600 mg BID JESUS Administration Remdesivir 100 mg/ Sodium 100 mls @ 200 mls/hr 11/25/20 09:00 11/25/20 10:10 Chloride IV 11/28/20 09:29 Infused DAILY JESUS Infusion Insulin Aspart 1 - 5 unit 11/24/20 13:00 11/25/20 08:18 Insulin Aspart 300 Unit/3 Ml Pen SUBQ 1 unit 0800,1200,1700,2100 JESUS Administration Protocol Pantoprazole Sodium 40 mg 11/25/20 07:00 11/25/20 07:05 Pantoprazole 40 Mg Tablet PO 40 mg QDAC JESUS Administration Sodium Chloride 10 ml 11/24/20 17:00 11/25/20 09:32 Sodium Chloride Flush 0.9% 10 Ml Syringe IVP 10 ml 0100,0900,1700 JESUS Administration - Lab Result Fish Bone Diagrams: 11/25/20 05:19 11/25/20 05:19 Subjective - Subjective Patient Reports: Feeling Better, Resting Comfortably (Denies shortness of breath. Talking comfortably on phone with . Reports intermittent productive cough.) Nursing Reports: No Complaints Objective Vital Signs: Vital Signs - 24 hr 11/24/20 11/24/20 11/24/20 13:00 17:00 19:05 Temperature 38.1 C H 38.1 C H 36.7 C Heart Rate [ 99 85 Brachial] Respiratory 30 H 28 H Rate Blood Pressure 119/52 L 130/71 [Left Brachial artery] Blood Pressure [Right Brachial ] O2 Saturation 92 94 11/24/20 11/24/20 11/25/20 20:46 23:34 05:00 Temperature 36.6 C 36.9 C 36.9 C Heart Rate [ 80 78 86 Brachial] Respiratory 20 16 20 Rate Blood Pressure 126/73 121/62 [Left Brachial artery] Blood Pressure 119/71 [Right Brachial ] O2 Saturation 92 97 94 11/25/20 11/25/20 11/25/20 08:12 08:24 08:29 Temperature 36.5 C Heart Rate [ 84 Brachial] Respiratory 20 Rate Blood Pressure [Left Brachial artery] Blood Pressure 128/67 [Right Brachial ] O2 Saturation 86 L 89 L Oxygen O2 Source Oxymizer Oxygen Flow Rate 4 I&O (Last 24 Hrs): Intake and Output Totals x24h 11/23/20 11/24/20 11/25/20 23:59 23:59 23:59 Intake Total 1080 520 Output Total 300 650 Balance 780 -130 General: Alert, Oriented x3, Cooperative, No acute distress HEENT: PERRLA, Mucous membr. moist/pink Neck: Supple, No JVD Neuro: Alert, Oriented Times 3 Cardiovascular: Regular rate, Normal S1, Normal S2, No murmurs Respiratory: Chest non-tender, No respiratory distress, Other (Fine rales to left lower lobe.) Abdomen: Normal bowel sounds Genitourinary: Normal Inspection Extremities: No clubbing, No cyanosis, No edema, Normal pulses, No tend erness/swelling Skin: No rashes - Results Results: Laboratory Results WBC 5.6 x10^3/uL (4.8-10.8) 11/25/20 05:19 RBC 4.32 10^6/uL (4.70-6.10) L 11/25/20 05:19 Hgb 14.3 g/dL (14.0-18.0) 11/25/20 05:19 Hct 41.8 % (42.0-52.0) L 11/25/20 05:19 MCV 96.8 fL (80.0-94.0) H 11/25/20 05:19 MCH 33.1 pg (27.0-31.0) H 11/25/20 05:19 MCHC 34.2 g/dL (32.0-36.0) 11/25/20 05:19 RDW 12.2 % (12.0-15.0) 11/25/20 05:19 Plt Count 189 10^3/uL (130-450) 11/25/20 05:19 MPV 9.9 fL (7.4-11.4) 11/25/20 05:19 Neut # (Auto) 3.9 10^3/uL (1.5-6.6) 11/25/20 05:19 Lymph # (Auto) 1.2 10^3/uL (1.5-3.5) L 11/25/20 05:19 [place] # (Auto) 0.4 10^3/uL (0.0-1.0) 11/25/20 05:19 Eos # (Auto) 0.0 10^3/uL (0.0-0.7) 11/25/20 05:19 Baso # (Auto) 0.0 10^3/uL (0.0-0.1) 11/25/20 05:19 Absolute Nucleated RBC 0.00 x10^3/uL 11/25/20 05:19 Nucleated RBC % 0.0 /100WBC 11/25/20 05:19 INR (Fingerstick) 1.1 (0.8-1.2) 11/25/20 11:02 Sodium 135 mmol/L (135-145) 11/25/20 05:19 Potassium 4.3 mmol/L (3.5-5.0) 11/25/20 05:19 Chloride 99 mmol/L (101-111) L 11/25/20 05:19 Carbon Dioxide 24 mmol/L (21-32) 11/25/20 05:19 Anion Gap 12.0 (6-13) 11/25/20 05:19 BUN 26 mg/dL (6-20) H 11/25/20 05:19 Creatinine 0.8 mg/dL (0.6-1.2) 11/25/20 05:19 Estimated GFR (MDRD) 97 (>89) 11/25/20 05:19 Glucose 127 mg/dL (70-100) H 11/25/20 05:19 Estimat Average Glucose 157 mg/dL (70-100) H 11/25/20 05:19 Hemoglobin A1c % 7.1 % (4.27-6.07) H 11/25/20 05:19 Lactic Acid 1.0 mmol/L (0.5-2.2) 11/24/20 10:10 Calcium 8.7 mg/dL (8.5-10.3) 11/25/20 05:19 Magnesium 1.9 mg/dL (1.7-2.8) 11/25/20 05:19 Total Bilirubin 0.9 mg/dL (0.2-1.0) 11/24/20 10:10 AST 43 IU/L (10-42) H 11/24/20 10:10 ALT 60 IU/L (10-60) 11/24/20 10:10 Alkaline Phosphatase 51 IU/L (42-121) 11/24/20 10:10 Total Protein 7.7 g/dL (6.7-8.2) 11/24/20 10:10 Albumin 3.8 g/dL (3.2-5.5) 11/24/20 10:10 Globulin 3.9 g/dL (2.1-4.2) 11/24/20 10:10 Albumin/Globulin Ratio 1.0 (1.0-2.2) 11/24/20 10:10 Lipase 50 U/L (22-51) 11/24/20 10:10 Urine Color YELLOW 11/24/20 17:59 Urine Clarity CLEAR (CLEAR) 11/24/20 17:59 Urine pH 6.0 PH (5.0-7.5) 11/24/20 17:59 Ur Specific [place] 1.025 (1.002-1.030) 11/24/20 17:59 Urine Protein 30 mg/dL (NEGATIVE) H 11/24/20 17:59 Urine Glucose (UA) 100 mg/dL (NEGATIVE) H 11/24/20 17:59 Urine Ketones TRACE mg/dL (NEGATIVE) 11/24/20 17:59 Urine Occult Blood TRACE-INTA (NEGATIVE) 11/24/20 17:59 Urine Nitrite NEGATIVE (NEGATIVE) 11/24/20 17:59 Urine Bilirubin NEGATIVE (NEGATIVE) 11/24/20 17:59 Urine Urobilinogen 2 E.U./dL (NORMAL) H 11/24/20 17:59 Ur Leukocyte Esterase NEGATIVE (NEGATIVE) 11/24/20 17:59 Urine RBC 0-5 /HPF (0-5) 11/24/20 17:59 Urine WBC 0-3 /HPF (0-3) 11/24/20 17:59 Ur Squamous Epith Cells RARE Squamous (<= Few) 11/24/20 17:59 Urine Bacteria None Seen /HPF (None Seen) 11/24/20 17:59 Ur Microscopic Review INDICATED 11/24/20 17:59 Urine Culture Comments NOT INDICATED 11/24/20 17:59 ABX Reporting Has patient been on IV antibiotics over the past 48 hours?: No
[2020-11-25] MEDS: FLUTICASONE/SALMETEROL 500/50 INHALER INH SCH ×2 (14:36→21:30)
[2020-11-25] MEDS: ATORVASTATIN 10 MG TABLET PO SCH (21:09)
[2020-11-26] MEDS: SODIUM CHLORIDE FLUSH 0.9% 10 ML SYRINGE IVP SCH ×3 (02:00→17:16)
[2020-11-26 05:51] LABS: BASOPHILS % (AUTO) 0.2 %; HGB - HEMOGLOBIN 14.1 g/dL (14.0-18.0); LYMPHOCYTES % (AUTO) 20.7 %; MEAN CORPUSCULAR HEMOGLOBIN 32.9 pg (27.0-31.0); MEAN CORPUSCULAR HGB CONC 34.4 g/dL (32.0-36.0); MEAN CORPUSCULAR VOLUME 95.6 fL (80.0-94.0); MEAN PLATELET VOLUME 10.2 fL (7.4-11.4); MONOCYTES % (AUTO) 9.6 %; PLT - PLATELET COUNT 227 10^3/uL (130-450); RED BLOOD COUNT 4.29 10^6/uL (4.70-6.10); RED CELL DISTRIBUTION WIDTH 12.2 % (12.0-15.0); WHITE BLOOD COUNT 5.2 x10^3/uL (4.8-10.8)
[2020-11-26 05:56] LABS: ABNORMAL LYMPHS % (MANUAL) 0 %; BAND NEUTROPHILS % (MANUAL) 0 %
[2020-11-26 05:58] LABS: CALCIUM 8.8 mg/dL (8.5-10.3); CREATININE 0.9 mg/dL (0.6-1.2); MAGNESIUM 2.1 mg/dL (1.7-2.8); POTASSIUM 4.3 mmol/L (3.5-5.0)
[2020-11-26 06:18] LABS: DIFFERENTIAL COMMENT MANUAL DIFFERENTIAL; LYMPHOCYTES # (MANUAL) 0.9 10^3/uL (1.5-3.5); LYMPHOCYTES % (MANUAL) 18 %; MONOCYTES # (MANUAL) 0.5 10^3/uL (0.0-1.0); NEUTROPHILS # (MANUAL) 3.8 10^3/uL (1.5-6.6); PLATELET ESTIMATE, MANUAL NORMAL (130-450,000) (NORMAL); PLATELET MORPHOLOGY NORMAL APPEARANCE (NORMAL); RBC MORPHOLOGY (MULTIPLE) NORMAL APPEARANCE (NORMAL); WBC MORPHOLOGY (MULTIPLE) NORMAL APPEARANCE (NORMAL)
[2020-11-26] MEDS ORDERED: INSULIN ASPART 300 UNIT/3 ML PEN SUBQ SCH (08:00)
[2020-11-26] MEDS: DEXAMETHASONE 4 MG/ML VIAL IVP SCH (08:14)
[2020-11-26] MEDS: CHOLECALCIFEROL 5,000 UNIT CAPSULE PO SCH (08:14)
[2020-11-26] MEDS: ENOXAPARIN 40 MG/0.4 ML SYRINGE SUBQ SCH (08:14)
[2020-11-26] MEDS: REMDESIVIR 100MG VIAL 100 MG in SODIUM CHLORIDE 0.9% 100ML 100 ML IV SCH (08:14)
[2020-11-26] MEDS: guaiFENesin 600 MG TABLET PO SCH ×2 (08:14→20:47)
[2020-11-26] MEDS: ALBUTEROL 1 PUFF INH PRN ×2 (08:16→20:55)
[2020-11-26] MEDS: FLUTICASONE/SALMETEROL 500/50 INHALER INH SCH ×2 (08:16→20:55)
[2020-11-26] MEDS: INSULIN ASPART 300 UNIT/3 ML PEN SUBQ SCH ×3 (11:58→20:47)
--- NOTE | 2020-11-26 14:45 | PHARMACY PROGRESS NOTE ---
- Best Possible Medication History Admit Date and Time: 11/24/20 1122 Processed by: Nursing Medication History completed: Yes As the person ultimately responsible for medication therapy, providers are able to order a medication from an existing home medication list in [facility] via the "Reconcile Routine" prior to Confirmation of that medication by passport support manager. Such practice is discouraged except when the physician, in their clinical judgment, deems that a medical need exists for a medication without regard to previous use.
[2020-11-26] MEDS: PANTOPRAZOLE 40 MG TABLET PO SCH (16:31)
--- NOTE | 2020-11-26 18:48 | PROVIDER PROGRESS NOTE ---
Assessment/Plan - Problem List (1) Acute respiratory failure with hypoxia Assessment/Plan: Continue with supplemental oxygen and treating the underlying problem which is the Covid pneumonia on top of his pulmonary fibrosis. All O2 sat is 88% and higher (2) Pneumonia due to COVID-19 virus Assessment/Plan: Cont with Remdesivir, IV Decadron, Mucinex, incentive spirometry, proning and supplemental oxygen (3) Pulmonary fibrosis Assessment/Plan: As per history. He reports that his associate professor of management has told him in the past (before doug Covid) that he will need to be on oxygen Continue with inhaler treatments (4) Type 2 diabetes mellitus Assessment/Plan: His A1c is 7.1. He told me that his A1c has been running 6-7 and that he has stopped needing to do fingerstick checks even at home Continue with sliding scale insulin coverage. Metformin has been on hold while here in case he needs imaging using dye (5) HTN (hypertension) Assessment/Plan: Are ordered to resume here with holding parameters (6) Tachycardia Assessment/Plan: Resolved - Current Meds Current Meds: Current Medications Generic Name Dose Route Start Last Admin Trade Name Freq PRN Reason Stop Dose Admin Acetaminophen 650 mg 11/24/20 11:22 11/24/20 17:30 Acetaminophen 325 Mg Tablet PO 650 mg Q4HR PRN Administration Pain or Fever > 38C (100.4F) Albuterol 2 puffs 11/24/20 12:53 11/26/20 08:16 Albuterol 1 Puff INH 2 puffs Q4HR PRN Administration Wheezing Atorvastatin Calcium 10 mg 11/24/20 21:00 11/25/20 21:09 Atorvastatin 10 Mg Tablet PO 10 mg QPM JESUS Administration Cholecalciferol 5,000 unit 11/25/20 09:00 11/26/20 08:14 Cholecalciferol 5,000 Unit Capsule PO 5,000 unit DAILY JESUS Administration Dexamethasone 6 mg 11/25/20 09:00 11/26/20 08:14 Dexamethasone 4 Mg/Ml Vial IVP 6 mg DAILY JESUS Administration Enoxaparin Sodium 40 mg 11/25/20 09:00 11/26/20 08:14 Enoxaparin 40 Mg/0.4 Ml Syringe SUBQ 40 mg DAILY JESUS Administration Guaifenesin 600 mg 11/24/20 14:00 11/26/20 08:14 Guaifenesin 600 Mg Tablet PO 600 mg BID JESUS Administration Remdesivir 100 mg/ Sodium 100 mls @ 200 mls/hr 11/25/20 09:00 11/26/20 09:00 Chloride IV 11/28/20 09:29 Infused DAILY JESUS Infusion Insulin Aspart 2 - 10 unit 11/26/20 12:00 11/26/20 17:12 Insulin Aspart 300 Unit/3 Ml Pen SUBQ 10 unit 0800,1200,1700,2100 JESUS Administration Protocol Pantoprazole Sodium 40 mg 11/25/20 07:00 11/26/20 16:31 Pantoprazole 40 Mg Tablet PO Not Given QDAC JESUS Fluticasone/Salmeterol 1 puffs 11/25/20 11:00 11/26/20 08:16 Fluticasone/Salmeterol 500/50 Inhaler INH 1 puffs RTBID JESUS Administration Sodium Chloride 10 ml 11/24/20 17:00 11/26/20 17:16 Sodium Chloride Flush 0.9% 10 Ml Syringe IVP 10 ml 0100,0900,1700 JESUS Administration - Lab Result Fish Bone Diagrams: 11/26/20 05:10 11/26/20 05:10 - Additional Planning My Orders: My Active Orders 11/25/20 21:19 RT [Nebulizer/MDI Tx.] [RC] .bid 11/26/20 12:00 Insulin Aspart [NovoLOG] 2 - 10 unit SUBQ 0800,1200,1700,2100 11/26/20 21:00 Insulin Aspart [NovoLOG] 3 - 11 unit SUBQ 0800,1200,1700,2100 11/27/20 05:00 BMP - BASIC METABOLIC PANEL [CHEM] DAILYLAB CBC - COMP BLD CT W/AUTO DIFF [HEME] DAILYLAB 11/28/20 05:00 BMP - BASIC METABOLIC PANEL [CHEM] DAILYLAB CBC - COMP BLD CT W/AUTO DIFF [HEME] DAILYLAB Subjective - Subjective Patient Reports: Feeling Better (He is less short of breath and has much less coughing he reports) Nursing Reports: Other (The oxygen needs are between 2 L and 4 L per NC) Objective Vital Signs: Vital Signs - 24 hr 11/25/20 11/25/20 11/26/20 20:41 21:15 01:00 Temperature 36.6 C 36.4 C L Heart Rate 77 Heart Rate [ 76 86 Brachial] Respiratory 16 22 20 Rate Blood Pressure 136/79 H 134/73 H [Left Brachial artery] Blood Pressure [Right Brachial ] O2 Saturation 99 100 11/26/20 11/26/20 11/26/20 07:34 08:16 11:09 Temperature 36.4 C L 36.4 C L Heart Rate 90 Heart Rate [ 90 77 Brachial] Respiratory 20 14 20 Rate Blood Pressure 129/72 [Left Brachial artery] Blood Pressure 125/70 [Right Brachial ] O2 Saturation 98 100 11/26/20 11/26/20 11/26/20 13:16 16:52 17:24 Temperature 36.4 C L 36.8 C Heart Rate 90 Heart Rate [ Brachial] Respiratory 20 16 Rate Blood Pressure [Left Brachial artery] Blood Pressure 116/70 [Right Brachial ] O2 Saturation 92 96 Oxygen O2 Source Nasal cannula Oxygen Flow Rate 4 I&O (Last 24 Hrs): Intake and Output Totals x24h 11/24/20 11/25/20 11/26/20 23:59 23:59 23:59 Intake Total 1080 1600 1100 Output Total 300 1050 Balance 191 193 7894 General: Alert, Oriented x3 HEENT: Mucous membr. moist/pink Neuro: Alert, Non Focal Cardiovascular: Regular rate Respiratory: Other (Not auscultated) Abdomen: Soft Extremities: No edema - Results Results: Laboratory Results WBC 5.2 x10^3/uL (4.8-10.8) 11/26/20 05:10 RBC 4.29 10^6/uL (4.70-6.10) L 11/26/20 05:10 Hgb 14.1 g/dL (14.0-18.0) 11/26/20 05:10 Hct 41.0 % (42.0-52.0) L 11/26/20 05:10 MCV 95.6 fL (80.0-94.0) H 11/26/20 05:10 MCH 32.9 pg (27.0-31.0) H 11/26/20 05:10 MCHC 34.4 g/dL (32.0-36.0) 11/26/20 05:10 RDW 12.2 % (12.0-15.0) 11/26/20 05:10 Plt Count 227 10^3/uL (130-450) 11/26/20 05:10 MPV 10.2 fL (7.4-11.4) 11/26/20 05:10 Neut # (Auto) Not Reportable 11/26/20 05:10 Lymph # (Auto) Not Reportable 11/26/20 05:10 [place] # (Auto) Not Reportable 11/26/20 05:10 Eos # (Auto) Not Reportable 11/26/20 05:10 Baso # (Auto) Not Reportable 11/26/20 05:10 Absolute Nucleated RBC Not Reportable 11/26/20 05:10 Total Counted 100 11/26/20 05:10 Band Neuts % (Manual) 0 % (0-10) 11/26/20 05:10 Abnorm Lymph % (Manual) 0 % 11/26/20 05:10 Nucleated RBC % Not Reportable 11/26/20 05:10 Neutrophils # (Manual) 3.8 10^3/uL (1.5-6.6) 11/26/20 05:10 Lymphocytes # (Manual) 0.9 10^3/uL (1.5-3.5) L 11/26/20 05:10 Monocytes # (Manual) 0.5 10^3/uL (0.0-1.0) 11/26/20 05:10 Eosinophils # (Manual) 0.0 10^3/uL (0-0.7) 11/26/20 05:10 Basophils # (Manual) 0.0 10^3/uL (0-0.1) 11/26/20 05:10 Differential Comment MANUAL DIFFERENTIAL 11/26/20 05:10 WBC Morphology NORMAL APPEARANCE (NORMAL) 11/26/20 05:10 Platelet Estimate NORMAL (130-450,000) (NORMAL) 11/26/20 05:10 Platelet Morphology NORMAL APPEARANCE (NORMAL) 11/26/20 05:10 RBC Morph Micro Appear NORMAL APPEARANCE (NORMAL) 11/26/20 05:10 INR (Fingerstick) 1.1 (0.8-1.2) 11/25/20 11:02 Sodium 135 mmol/L (135-145) 11/26/20 05:10 Potassium 4.3 mmol/L (3.5-5.0) 11/26/20 05:10 Chloride 100 mmol/L (101-111) L 11/26/20 05:10 Carbon Dioxide 23 mmol/L (21-32) 11/26/20 05:10 Anion Gap 12.0 (6-13) 11/26/20 05:10 BUN 28 mg/dL (6-20) H 11/26/20 05:10 Creatinine 0.9 mg/dL (0.6-1.2) 11/26/20 05:10 Estimated GFR (MDRD) 84 (>89) L 11/26/20 05:10 Glucose 247 mg/dL (70-100) H 11/26/20 05:10 Estimat Average Glucose 157 mg/dL (70-100) H 11/25/20 05:19 Hemoglobin A1c % 7.1 % (4.27-6.07) H 11/25/20 05:19 Lactic Acid 1.0 mmol/L (0.5-2.2) 11/24/20 10:10 Calcium 8.8 mg/dL (8.5-10.3) 11/26/20 05:10 Magnesium 2.1 mg/dL (1.7-2.8) 11/26/20 05:10 Total Bilirubin 0.9 mg/dL (0.2-1.0) 11/24/20 10:10 AST 43 IU/L (10-42) H 11/24/20 10:10 ALT 60 IU/L (10-60) 11/24/20 10:10 Alkaline Phosphatase 51 IU/L (42-121) 11/24/20 10:10 Total Protein 7.7 g/dL (6.7-8.2) 11/24/20 10:10 Albumin 3.8 g/dL (3.2-5.5) 11/24/20 10:10 Globulin 3.9 g/dL (2.1-4.2) 11/24/20 10:10 Albumin/Globulin Ratio 1.0 (1.0-2.2) 11/24/20 10:10 Lipase 50 U/L (22-51) 11/24/20 10:10 Urine Color YELLOW 11/24/20 17:59 Urine Clarity CLEAR (CLEAR) 11/24/20 17:59 Urine pH 6.0 PH (5.0-7.5) 11/24/20 17:59 Ur Specific [place] 1.025 (1.002-1.030) 11/24/20 17:59 Urine Protein 30 mg/dL (NEGATIVE) H 11/24/20 17:59 Urine Glucose (UA) 100 mg/dL (NEGATIVE) H 11/24/20 17:59 Urine Ketones TRACE mg/dL (NEGATIVE) 11/24/20 17:59 Urine Occult Blood TRACE-INTA (NEGATIVE) 11/24/20 17:59 Urine Nitrite NEGATIVE (NEGATIVE) 11/24/20 17:59 Urine Bilirubin NEGATIVE (NEGATIVE) 11/24/20 17:59 Urine Urobilinogen 2 E.U./dL (NORMAL) H 11/24/20 17:59 Ur Leukocyte Esterase NEGATIVE (NEGATIVE) 11/24/20 17:59 Urine RBC 0-5 /HPF (0-5) 11/24/20 17:59 Urine WBC 0-3 /HPF (0-3) 11/24/20 17:59 Ur Squamous Epith Cells RARE Squamous (<= Few) 11/24/20 17:59 Urine Bacteria None Seen /HPF (None Seen) 11/24/20 17:59 Ur Microscopic Review INDICATED 11/24/20 17:59 Urine Culture Comments NOT INDICATED 11/24/20 17:59
[2020-11-26] MEDS: ATORVASTATIN 10 MG TABLET PO SCH (20:47)
[2020-11-27] MEDS: SODIUM CHLORIDE FLUSH 0.9% 10 ML SYRINGE IVP SCH ×3 (01:45→17:36)
[2020-11-27 05:50] LABS: BASOPHILS % (AUTO) 0.3 %; HCT - HEMATOCRIT 39.3 % (42.0-52.0); HGB - HEMOGLOBIN 13.9 g/dL (14.0-18.0); LYMPHOCYTES % (AUTO) 21.5 %; MEAN CORPUSCULAR HEMOGLOBIN 33.5 pg (27.0-31.0); MEAN CORPUSCULAR HGB CONC 35.4 g/dL (32.0-36.0); MEAN CORPUSCULAR VOLUME 94.7 fL (80.0-94.0); MEAN PLATELET VOLUME 9.7 fL (7.4-11.4); MONOCYTES % (AUTO) 8.4 %; NEUTROPHILS % (AUTO) 67.7 %; PLT - PLATELET COUNT 278 10^3/uL (130-450); RED BLOOD COUNT 4.15 10^6/uL (4.70-6.10); RED CELL DISTRIBUTION WIDTH 12.1 % (12.0-15.0)
[2020-11-27 05:59] LABS: ABNORMAL LYMPHS % (MANUAL) 0 %; BAND NEUTROPHILS % (MANUAL) 0 %
[2020-11-27 06:01] LABS: CALCIUM 8.7 mg/dL (8.5-10.3); CREATININE 0.9 mg/dL (0.6-1.2); POTASSIUM 4.2 mmol/L (3.5-5.0)
[2020-11-27] MEDS: PANTOPRAZOLE 40 MG TABLET PO SCH (06:10)
[2020-11-27 06:28] LABS: DIFFERENTIAL COMMENT MANUAL DIFFERENTIAL; EOSINOPHILS # (MANUAL) 0.1 10^3/uL (0-0.7); LYMPHOCYTES # (MANUAL) 2.5 10^3/uL (1.5-3.5); LYMPHOCYTES % (MANUAL) 31 %; METAMYELOCYTES % (MANUAL) 2 %; MONOCYTES # (MANUAL) 0.8 10^3/uL (0.0-1.0); MYELOCYTES % (MANUAL) 2 %; NEUTROPHILS # (MANUAL) 4.3 10^3/uL (1.5-6.6); PLATELET ESTIMATE, MANUAL NORMAL (130-450,000) (NORMAL); RBC MORPHOLOGY (MULTIPLE) NORMAL APPEARANCE (NORMAL)
[2020-11-27] MEDS: INSULIN ASPART 300 UNIT/3 ML PEN SUBQ SCH ×3 (08:23→17:35)
[2020-11-27] MEDS: CHOLECALCIFEROL 5,000 UNIT CAPSULE PO SCH (08:24)
[2020-11-27] MEDS: ENOXAPARIN 40 MG/0.4 ML SYRINGE SUBQ SCH (08:25)
[2020-11-27] MEDS: DEXAMETHASONE 4 MG/ML VIAL IVP SCH (08:25)
[2020-11-27] MEDS: guaiFENesin 600 MG TABLET PO SCH (08:25)
[2020-11-27] MEDS: REMDESIVIR 100MG VIAL 100 MG in SODIUM CHLORIDE 0.9% 100ML 100 ML IV SCH (08:29)
[2020-11-27] MEDS: FLUTICASONE/SALMETEROL 500/50 INHALER INH SCH (10:30)
[2020-11-27] MEDS: ALBUTEROL 1 PUFF INH PRN (10:30)
--- NOTE | 2020-11-27 18:51 | Discharge Plan ---
Discharge Plan Problem Reviewed?: Yes Disposition: Home, Self Care Condition: Stable Diet: Regular Instruction Topics: COVID-19 Located Within [facility] Department Statement Health Concerns: You were admitted for treatment of a Covid pneumonia and needed oxygen supplemental. You were treated with Remdesivir and Decadron, and medicines to help the cough and spirometry to improve ventilation. You are being discharged after improvement. Your oxygen needs are back down to their baseline which is 2 L of oxygen set continuously, at rest and with activity. YOU NEED TO REMAIN IN QUARANTINE IN YOUR HOUSE, APART FROM FAMILY, FOR ANOTHER 7 DAYS, PER GUIDELINES regarding Covid infections. You may take standard supplements for improving your immunity (like vitamin D and multivitamin). You may continue to use adun-nyh-yacptzf Mucinex or Robitussin for cough symptoms . Please resume all your usual pre-hospital medications. If you have new or worsening symptoms, call your Primary Care Provider for advice or come to the ER. Plan of Treatment: As above. Care Goals: Improvement in symptoms and stabilization are the goals. Assessment: The patient understands and is agreeable with the plan. Additional Instructions or Follow Up instructions: Please see your new primary care provider (the one that is taking over for Tim Jerez NP), in the next 1 to 2 weeks for a hospital follow-up visit. No Smoking: If you smoke, Please STOP! Call for help. Follow-up with: TIM JEREZ, MSN, COMPUTER LABORATORY TECHNICIAN [Credentialed Staff Provider] -
--- NOTE | 2020-11-27 18:54 | DISCHARGE SUMMARY ---
Discharge Summary Admit Date: 11/24/20 Discharge Date: 11/27/20 Discharging Provider: Maegan Olivas MD Primary Care Provider: Marium Quesada NP or new Provider Code Status: Attempt Resuscitation Condition at Discharge: Fair Discharge Disposition: 01 Home, Self Care - HPI History of Present Illness: This is a 65 y/o white male with a Hx of pulmonary fibrosis, sleep apnea on CPAP, HTN and NIDDM. He has been vaccinated for COVID with the [employer] form in September (2 mos ago). He has a Litigation Attorney, Dr Maddy Harrington, in [place]. He recently went on a car trip with his 2 adult children to [facility] and [place], [place], where he developed SOB and 2 nose bleeds and went to an ER in [place], [place], where he tested positive for COVID, but was discharged from their ER with "a medicine to help his cough" and new home oxygen, set at 2L continuously. He was offered admission and declined, thus he was advised to return home and quarantine. He tried to stay apart from the 2 children and they all wore masks in the car, and he got home last night, where he was kept isolated from his . He had PND last night and presented to our ER today with c/o worsened SOB and reported he was desaturating to 76% (per his home oximeter), despite being on O2 per n.c. at 3L. He was desaturating to 85% on room air in the ER. His CXR showed bibasilar interstitial changes and emphysematous changes. He is being admitted for COVID pneumonia with hypoxia. He would like to be a FULL CODE, per my discussion with him today. - HOSPITAL COURSE Hospital Course: (1) Acute respiratory failure with hypoxia He was put on supplemental oxygen via nasal cannula and we treated the underlying Covid pneumonia plus his pulmonary fibrosis. His O2 needs felipa to 4L, saturating at 88% or higher. When he was discharged, he was back at his usual O2 setting of 2L continuously. (2) Pneumonia due to COVID-19 virus He was started on Remdesivir, IV Decadron, Mucinex, incentive spirometry, proning and supplemental oxygen. He was in Infectious Isolation. He was discharged when his O2 needs returned to his baseline and was told to continue quarantine until 10 days from start of symptoms. (3) Pulmonary fibrosis As per history. He reports that his orchard hand has told him in the past (before doug Covid) that he will need to be on oxygen someday. We continued with his inhaler treatments. (4) Type 2 diabetes mellitus His A1c was 7.1. He told me that his A1c has been running 6-7 and that he has even stopped needing to do fingerstick checks at home. Here he was getting a diabetic diet with sliding scale insulin coverage. Metformin was on hold while here, in case he needed imaging using dye. (5) HTN (hypertension) We ordered his meds to continue here with holding parameters if BP low. (6)Sleep apnea His home device was ordered to use here. - ALLERGIES Allergies/Adverse Reactions: Allergies Allergy/AdvReac Type Severity Reaction Status Date / Time No Known Drug Allergies Allergy Verified 09/01/20 20:19 - MEDICATIONS Home Medications: Ambulatory Orders Medication Instructions Recorded Confirmed Albuterol Sulfate [Proair Hfa 2 puffs IH Q4HR PRN 09/01/20 11/24/20 Inhaler] Atorvastatin [Lipitor] 10 mg PO DAILY 09/01/20 11/24/20 Fluticasone/Salmeterol [Advair 1 puffs INH BID 09/01/20 11/24/20 500-50 Diskus] Lisinopril [Zestril] 2.5 mg PO DAILY 09/01/20 11/24/20 Metformin HCl [Metformin ER 1,000 mg PO BID 09/01/20 11/24/20 Osmotic] Omeprazole [PriLOSEC] 20 mg PO DAILY 09/01/20 11/24/20 Ubidecarenone [Co Q-10] 400 mg PO DAILY 09/01/20 11/24/20 Dexamethasone [Decadron] 6 mg PO DAILY 11/24/20 11/24/20 - PHYSICAL EXAM AT DISCHARGE General Appearance: positive: No acute distress, Alert Eyes Bilateral: positive: Normal inspection, EOMI ENT: positive: ENT inspection nml, No signs of dehydration Neck: positive: Nml inspection, No JVD Respiratory: positive: No respiratory distress (while on O2 via n.c.) Cardiovascular: positive: Regular rate & rhythm, No murmur Abdomen: positive: Non-tender, No distention Skin: positive: Warm, Dry Extremities: positive: Non-tender, No pedal edema Neurologic/Psychiatric: positive: Oriented x3 (Non-focal but poor memory) - LABS Result Diagrams: 11/27/20 05:38 11/27/20 05:38 - FOLLOW UP Follow Up: See PCP in routine follow-up after quarantine. - TIME SPENT Time Spent in Discharge (Minutes): 50
[2020-11-27 19:54] VITALS: BP 124/74
== END 2020-11-27 21:20 | disposition home or self-care (01) | DRG 177 ==
LOC: EDUNIT# → EDBD → ED 09:38 → MS2 11:22
PROVIDERS: ADMIT Internal Medicine; ATTEND Internal Medicine
PROC: XW033E5 Introduction of Remdesivir Anti-infective into Peripheral Vein, Percutaneous Approach, New Technology Group 5 (ICD-10-PCS; principal; 2020-11-25)
PROC: 3E0333Z Introduction of Anti-inflammatory into Peripheral Vein, Percutaneous Approach (ICD-10-PCS; 2020-11-25)
DX: U07.1 COVID-19 (principal); J12.82 Pneumonia due to coronavirus disease 2019; J96.01 Acute respiratory failure with hypoxia; J84.10 Pulmonary fibrosis, unspecified; J43.9 Emphysema, unspecified; R00.0 Tachycardia, unspecified; E11.9 Type 2 diabetes mellitus without complications; G47.30 Sleep apnea, unspecified; I10 Essential (primary) hypertension; E78.00 Pure hypercholesterolemia, unspecified; I65.29 Occlusion and stenosis of unspecified carotid artery; I67.1 Cerebral aneurysm, nonruptured; Z79.51 Long term (current) use of inhaled steroids; Z79.84 Long term (current) use of oral hypoglycemic drugs; Z79.899 Other long term (current) drug therapy; Z87.891 Personal history of nicotine dependence
CPT/HCPCS: 36415; 71045; 80048; 80053; 81001; 83036; 83605; 83690; 83735; 85025; 85610; 87040; 93005; 94640; 99284; 99285; A9270; C9399; J1650; 81003; 87086

== ENCOUNTER 2020-12-21 14:03 | Outpatient (CLI) | payer MEDICARE, OTHER | END 2020-12-21 14:04 | disposition home or self-care (01) | LOC: RT 14:03 | PROVIDERS: ATTEND Internal Medicine Pulmonary Disease | DX: J43.2 Centrilobular emphysema (principal) | CPT/HCPCS: 94761 ==

== ENCOUNTER 2020-12-25 08:00 | Outpatient (CLI) | payer MEDICARE, OTHER ==
[2020-12-25 12:06] LABS: CALCIUM 9.3 mg/dL (8.5-10.3); CREATININE 0.9 mg/dL (0.6-1.2); POTASSIUM 4.2 mmol/L (3.5-5.0)
[2020-12-25 12:21] LABS: ESTIMATED AVERAGE GLUCOSE 174 mg/dL (70-100); HEMOGLOBIN A1c% 7.7 % (4.27-6.07)
== END 2020-12-25 23:59 | disposition home or self-care (01) ==
LOC: LAB.WCP 08:00
PROVIDERS: ATTEND Family Medicine
DX: E11.9 Type 2 diabetes mellitus without complications (principal)
CPT/HCPCS: 36415; 80048; 83036

== ENCOUNTER 2021-01-11 08:38 | Outpatient (CLI) | payer MEDICARE, OTHER | END 2021-01-11 08:39 | disposition home or self-care (01) | LOC: NS 08:38 | PROVIDERS: ATTEND Nurse Practitioner | DX: E11.9 Type 2 diabetes mellitus without complications (principal); R63.4 Abnormal weight loss; U07.1 COVID-19; Z71.3 Dietary counseling and surveillance; Z68.30 Body mass index [BMI] 30.0-30.9, adult | CPT/HCPCS: 97802 ==

== ENCOUNTER 2021-01-18 18:42 | Emergency (ER) | payer MEDICARE, OTHER ==
--- NOTE | 2021-01-18 18:55 | ED Physician Documentation ---
PD HPI FOCAL NEURO - Stated complaint Stated Complaint: SLURRED SPEACH,CONFUSION - Chief complaint Chief Complaint: Neuro - History obtained from History obtained from: Patient, Family (daughter) - History of Present Illness Timing - onset: Today (daughter arrived home about 4 pm and noted pt to have some slurring of speech, seemed confused. No focal weaknesses noted. Symptoms improving some but still seems somewhat confused, so she brought him here. He denies illness, headache, fall/injury.) Timing - details: Still present (but daughter says is improving a lot.), Other (he is not sure the onset of it as he was home alone during the day. He says he did feel a bit off balance when doing activity earlier in the afternoon.) Severity of deficit: Moderate Weakness: No: Face, Arm, Leg Numbness: No: Face, Arm, Leg Associated symptoms: No: Headache, Chest pain, Fever Baseline status: positive: A&OX3, ambulatory, indep Recently seen: Not recently seen Review of Systems Constitutional: denies: Fever Nose: denies: Rhinorrhea / runny nose, Congestion Throat: denies: Sore throat Cardiac: denies: Chest pain / pressure Respiratory: reports: Dyspnea (chronic). denies: Cough GI: denies: Abdominal Pain, Vomiting, Diarrhea Neurologic: denies: Focal weakness, Numbness, Near syncope (but was feeling lightheaded with standing today. 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) Endocrine/Autoimmune: Type 2 diabetes (He no longer checks his fingerstick glu, he rund A1c's of 6-7, he says) GI: None : None HEENT: None Psych: None Musculoskeletal: None Derm: None - Past Surgical History Past Surgical History: No Neuro: Craniotomy, Other (R tricia aneurysm was clipped) - Present Medications Home Medications: Ambulatory Orders Medication Instructions Recorded Confirmed Albuterol Sulfate [Proair Hfa 2 puffs IH Q4HR PRN 09/01/20 01/18/21 Inhaler] Atorvastatin [Lipitor] 10 mg PO DAILY 09/01/20 01/18/21 Fluticasone/Salmeterol [Advair 1 puffs INH BID 09/01/20 01/18/21 500-50 Diskus] Lisinopril [Zestril] 2.5 mg PO DAILY 09/01/20 01/18/21 Metformin HCl [Metformin ER 1,000 mg PO BID 09/01/20 01/18/21 Osmotic] Omeprazole [PriLOSEC] 20 mg PO DAILY 09/01/20 01/18/21 Ubidecarenone [Co Q-10] 400 mg PO DAILY 09/01/20 01/18/21 Dexamethasone [Decadron] 6 mg PO DAILY 11/24/20 01/18/21 - Allergies Allergies/Adverse Reactions: Allergies Allergy/AdvReac Type Severity Reaction Status Date / Time No Known Drug Allergies Allergy Verified 01/18/21 18:47 - Social History Does the pt smoke?: No Smoking Status: Former smoker Does the pt drink ETOH?: Yes Does the pt have substance abuse?: No - Immunizations Immunizations are current?: Yes - POLST Patient has POLST: No PD ED PE NORMAL - Vitals Vital signs reviewed: Yes - General General: Alert and oriented X 3, Well developed/nourished - HEENT HEENT: Atraumatic - Neck Neck: Supple, no meningeal sign, No adenopathy - Cardiac Cardiac: RRR, No murmur - Respiratory Respiratory: Clear bilaterally - Abdomen Abdomen: Soft, Non tender - Derm Derm: Normal color, Warm and dry - Neuro Neuro: Alert and oriented X 3, No motor deficit, No sensory deficit, Normal speech Eye Opening: Spontaneous Motor: Obeys Commands Verbal: Oriented GCS Score: 15 - Psych Psych: Normal mood NIHSS - Level of Consciousness Level of consciousness: (0) Alert, Keenly responsive LOC Questions: (0) Answers both Q's correct LOC Commands: (0) Performs both correctly - Gaze Best Gaze: (0) Normal - Visual Visual: (0) No loss - Facial Palsy Facial Palsy: (0) Normal, symmetrical movement - Motor Arms (both separate) Motor Arm (right): (0) No drift Motor Arm (left): (0) No drift - Motor Legs (both separate) Motor Leg (right): (0) No drift Motor Leg (left): (0) No drift - Limb Ataxia Limb Ataxia: (0) Absent - Sensory Sensory: (0) Normal - Best Language Best Language: (0) No aphasia - Dysarthria Dysarthria: (0) Normal - Extinction and Inattention (formally neg Extinction and inattention: (0) No abnormality - Total Score/Results Total Score/Result: 0 Results - Vitals Vitals: Vital Signs - 24 hr 01/18/21 01/18/21 01/18/21 18:45 19:28 19:30 Temperature 36.7 C Heart Rate 90 90 89 Heart Rate [ Sitting] Heart Rate [ Standing] Heart Rate [ Supine] Respiratory 24 24 25 H Rate Blood Pressure 113/55 L 119/62 105/65 Blood Pressure [Sitting] Blood Pressure [Standing] Blood Pressure [Supine] O2 Saturation 94 95 97 01/18/21 01/18/21 01/18/21 20:00 20:28 20:30 Temperature 36.6 C Heart Rate 89 94 Heart Rate [ 96 Sitting] Heart Rate [ 105 H Standing] Heart Rate [ 95 Supine] Respiratory 24 20 Rate Blood Pressure 110/67 118/68 Blood Pressure 114/67 [Sitting] Blood Pressure 104/67 [Standing] Blood Pressure 114/64 [Supine] O2 Saturation 98 99 Oxygen O2 Source Room air - Labs Labs: Laboratory Tests 01/18/21 01/18/21 01/18/21 18:51 18:55 18:55 WBC 10.3 RBC 4.46 L Hgb 13.9 L Hct 42.1 MCV 94.4 H MCH 31.2 H MCHC 33.0 RDW 12.9 Plt Count 281 MPV 9.7 Neut # (Auto) 5.9 Lymph # (Auto) 3.2 Stark # (Auto) 0.6 Eos # (Auto) 0.4 Baso # (Auto) 0.1 Absolute Nucleated RBC 0.00 Nucleated RBC % 0.0 PT 10.3 INR 0.9 Sodium Potassium Chloride Carbon Dioxide Anion Gap BUN Creatinine Estimated GFR (MDRD) Glucose POC Whole Bld Glucose 147 H Calcium Total Bilirubin AST ALT Alkaline Phosphatase Troponin I High Sens Total Protein Albumin Globulin Albumin/Globulin Ratio Ethyl Alcohol 01/18/21 01/18/21 01/18/21 18:55 18:55 18:55 WBC RBC Hgb Hct MCV MCH MCHC RDW Plt Count MPV Neut # (Auto) Lymph # (Auto) Stark # (Auto) Eos # (Auto) Baso # (Auto) Absolute Nucleated RBC Nucleated RBC % PT INR Sodium 138 Potassium 3.6 Chloride 100 L Carbon Dioxide 21 Anion Gap 17.0 H BUN 22 H Creatinine 0.9 Estimated GFR (MDRD) 84 L Glucose 152 H POC Whole Bld Glucose Calcium 9.9 Total Bilirubin 0.6 AST 17 ALT 19 Alkaline Phosphatase 67 Troponin I High Sens 3.0 Total Protein 7.8 Albumin 4.6 Globulin 3.2 Albumin/Globulin Ratio 1.4 Ethyl Alcohol 182.5 - Rads (name of study) head CT stroke protocol Radiology: Prelim report reviewed, Discussed with rads (no acute process. Prior clipping noted.), See rad report head/neck angio Radiology: Prelim report reviewed, Discussed with rads (no flow abnormality), See rad report PD MEDICAL DECISION MAKING - ED course Complexity details: reviewed results (patient denies any alcohol use today. However his symptoms are more c/w intoxication and low BP/lightheaded and not focal deficit. ), considered differential (daughter reports patient with mild slurring of speech and seemed confused. No focal weaknesses. Slowly improving coming here. He is somewhat low BP and seems underhydrated. Has elevated BA level. Normal neuroimaging. I believe he was not having neurovascular problem, but rather intoxication and dry.), d/w patient, d/w family (daughter) Departure - Departure Disposition: 01 Home, Self Care Clinical Impression: Slurred speech, Confusion, Postural drop in blood pressure Alcohol intoxication Qualifiers: Complication of substance-induced condition: uncomplicated Qualified Code(s): F10.920 - Alcohol use, unspecified with intoxication, uncomplicated Condition: Stable Record reviewed to determine appropriate education?: Yes Follow-Up: Lisbeth Sharma ARNP [Primary Care Provider] - Comments: Stay well-hydrated. Minimal to no alcohol use. I think your symptoms were r elated to lower blood pressure and less blood flow to the brain in combination with some alcohol in your system leading to the lightheadedness and slurred speech. No signs of abnormal blood flow to the brain based on your CT scan. No bleeding, swelling, tumors, nor stroke. Other blood tests are good as well. Continue usual medications. Discharge Date/Time: 01/18/21 21:43
[2021-01-18 19:01] LABS: BASOPHILS # (AUTO) 0.1 10^3/uL (0.0-0.1); BASOPHILS % (AUTO) 0.6 %; EOSINOPHILS # (AUTO) 0.4 10^3/uL (0.0-0.7); EOSINOPHILS % (AUTO) 3.6 %; HCT - HEMATOCRIT 42.1 % (42.0-52.0); HGB - HEMOGLOBIN 13.9 g/dL (14.0-18.0); LYMPHOCYTES # (AUTO) 3.2 10^3/uL (1.5-3.5); LYMPHOCYTES % (AUTO) 30.7 %; MEAN CORPUSCULAR HEMOGLOBIN 31.2 pg (27.0-31.0); MEAN CORPUSCULAR VOLUME 94.4 fL (80.0-94.0); MEAN PLATELET VOLUME 9.7 fL (7.4-11.4); MONOCYTES # (AUTO) 0.6 10^3/uL (0.0-1.0); MONOCYTES % (AUTO) 6.2 %; NEUTROPHILS # (AUTO) 5.9 10^3/uL (1.5-6.6); NEUTROPHILS % (AUTO) 57.8 %; PLT - PLATELET COUNT 281 10^3/uL (130-450); RED BLOOD COUNT 4.46 10^6/uL (4.70-6.10); RED CELL DISTRIBUTION WIDTH 12.9 % (12.0-15.0); WHITE BLOOD COUNT 10.3 x10^3/uL (4.8-10.8)
[2021-01-18 19:08] LABS: INR 0.9 (0.8-1.2); PT - PROTHROMBIN TIME 10.3 secs (9.9-12.6)
[2021-01-18 19:28] LABS: ALBUMIN 4.6 g/dL (3.2-5.5); ALBUMIN/GLOBULIN RATIO 1.4 (1.0-2.2); BILIRUBIN,TOTAL 0.6 mg/dL (0.2-1.0); CALCIUM 9.9 mg/dL (8.5-10.3); CREATININE 0.9 mg/dL (0.6-1.2); POTASSIUM 3.6 mmol/L (3.5-5.0); TOTAL PROTEIN 7.8 g/dL (6.7-8.2)
--- NOTE | 2021-01-18 19:30 | CT Report ---
PROCEDURE: Head W/O Stroke Protocol INDICATIONS: Stroke TECHNIQUE: Noncontrast 4.5 mm thick angled axial sections acquired from the foramen magnum to the vertex, with c oronal reformats. For radiation dose reduction, the following was used: automated exposure control, adjustment of mA and/or kV according to patient size. COMPARISON: FINDINGS: Image quality: Excellent. CSF spaces: Basal cisterns are patent. No extra-axial fluid collections. Ventricles are normal in size and shape. Brain: No midline shift. No intracranial masses or hemorrhage. Castillo-white matter interface is norm al. Skull and face: Calvarium and visualized facial bones are intact, without suspicious lesions. Remote right temporal craniotomy with aneurysm clip. Sinuses: Visualized sinuses and mastoids are clear. IMPRESSION: 1. Remote aneurysm clipping surgery. 2. No evidence acute stroke, hemorrhage, or mass. Above discussed with Ramírez Lemos at the time of dictation on 01/18/2021 at 1933 hours. This study fulfills neurological imaging criteria for inclusion or exclusion of acute stroke therapie s based on available published neurological imaging guidelines. Reviewed by: Glenn Vivas MD on 01/18/2021 7:28 PM PDT Approved by: Glenn Vivas MD on 01/18/2021 7:28 PM PDT Station ID: [id number]
[2021-01-18] MEDS ORDERED: SODIUM CHLORIDE 0.9% 1,000 ML IV STA ×2 (19:40→20:37)
--- NOTE | 2021-01-18 19:47 | CT Report ---
PROCEDURE: ANGIO HEAD W/WO INDICATIONS: L sided facial droop CONTRAST: IV CONTRAST: Optiray 320 ml: 80 PO CONTRAST: *NO PO CONTRAST TECHNIQUE: Precontrast 4.5 mm thick angled axial sections acquired from the foramen magnum to the vertex. Afte r the administration of intravenous contrast, 1 mm thick sections acquired through the [place] of [place] is. Postcontrast 4.5 mm thick sections then re-acquired from the foramen magnum to the vertex. 3-di mensional xusjoqj-ihqnmczne-kcgflpfuzp (MIP) and/or volume rendering reformats were acquired of the c entral intracranial vasculature. For radiation dose reduction, the following was used: automated ex posure control, adjustment of mA and/or kV according to patient size. COMPARISON: CT head from the same date FINDINGS: Image quality: Excellent. Anterior circulation: Intracranial internal carotid arteries are normal in size and flow. The flow within the paired anterior cerebral arteries is normal and symmetric. The flow within the middle cer ebral arteries is normal and symmetric. The anterior communicating artery is seen. No aneurysms are seen. Posterior circulation: Visualized portions of the vertebral arteries demonstrate normal caliber, and join to form a normal appearing basilar artery. Flow within the posterior cerebral arteries is norm al and symmetric. No aneurysms are seen. CSF spaces: Ventricles are normal in size and shape. Basal cisterns are patent. No extra-axial flu id collections. Brain: No midline shift. No intracranial bleeds or masses. Castillo-white matter interface appears int act. Skull and face: Calvarium and facial bones appear intact, without suspicious lesions. Remote right t emporal craniotomy and right MCA distribution aneurysm clipping Sinuses: Visualized sinuses and mastoids are clear. IMPRESSION: 1. Remote aneurysm clipping surgery. 2. No evidence acute stroke, hemorrhage, or mass. 3. Unremarkable CTA head. No aneurysm, stenosis, occlusion, or focal filling defect. Comment: Please refer to a separate report for CTA neck findings. Above discussed with TRACIE SAMANO at the time of dictation on 01/18/2021 at 1951 hours. Reviewed by: Glenn Vivas MD on 01/18/2021 7:46 PM PDT Approved by: Glenn Vivas MD on 01/18/2021 7:46 PM PDT Station ID: [id number]
--- NOTE | 2021-01-18 19:47 | CT Report ---
PROCEDURE: ANGIO NECK W INDICATIONS: L sided facial droop, L neck pain CONTRAST: IV CONTRAST: Optiray 320 ml: 80 PO CONTRAST: *NO PO CONTRAST TECHNIQUE: After the administration of intravenous contrast, 1.5 mm axial sections acquired from the aortic arch to the [place] of [place]. Coronal 3-D maximum intensity projection (MIP) and/or volume rendering ref ormats were then performed. For radiation dose reduction, the following was used: automated exposur e control, adjustment of mA and/or kV according to patient size. COMPARISON: None. FINDINGS: Image quality: Excellent. Carotid system: The great vessels demonstrate a normal variant bovine arch anatomy as they arise fro m the aortic arch. The origins of the common carotid arteries appear patent. The common carotid art eries demonstrate normal calibers and courses. The bifurcation regions appear normal bilaterally. T he internal carotid arteries demonstrate normal caliber and course. Posterior circulation: The origins of the vertebral arteries appear patent. The more superior porti ons of the vertebral arteries demonstrate normal course and caliber. They join to form a normal appe aring basilar artery. Soft tissues: Visualized neck soft tissues demonstrate no suspicious abnormalities. The thyroid is normal in size and there are no incidental findings. Bones: No suspicious bony lesions. Visualized cervical spine appears normally aligned. IMPRESSION: Unremarkable CTA neck. Widely patent carotids. Above discussed with TRACIE SAMANO at the time of dictation on 01/18/2021 at 1951 hours. The estimate of stenosis included in the report of the imaging study was calculated using the NASCET method CLINICAL RECOMMENDATION STATEMENTS: In patients <35 years with an ITN detected on CT, MRI, or extrathyroidal ultrasound, the Committee re commends further evaluation with dedicated thyroid ultrasound if the nodule is "e1 cm and has no susp icious imaging features, and if the patient has normal life expectancy. In patients "e35 years with an ITN detected on CT, MRI, or extrathyroidal ultrasound, the Committee r ecommends further evaluation with dedicated thyroid ultrasound if the nodule is "e1.5 cm and has no s uspicious imaging features, and if the patient has normal life expectancy. (ACR, 2014) Reviewed by: Glenn Vivas MD on 01/18/2021 7:46 PM PDT Approved by: Glenn Vivas MD on 01/18/2021 7:46 PM PDT Station ID: [id number]
[2021-01-18 20:43] VITALS: BP 118/68
[2021-01-18] MEDS ORDERED: IOVERSOL 320 100 ML VIAL IVP ONE ×2 (21:31→21:37)
== END 2021-01-18 21:43 | disposition home or self-care (01) ==
LOC: ED 18:42
DX: F10.920 Alcohol use, unspecified with intoxication, uncomplicated (principal); I95.1 Orthostatic hypotension; R47.81 Slurred speech; R41.0 Disorientation, unspecified; Z87.891 Personal history of nicotine dependence; E11.9 Type 2 diabetes mellitus without complications; Z79.84 Long term (current) use of oral hypoglycemic drugs
CPT/HCPCS: 36415; 70450; 70496; 70498; 80053; 84484; 85025; 85610; 93005; 99284; G0480; Q9967; 80320

== ENCOUNTER 2021-02-01 10:12 | Outpatient (CLI) | payer MEDICARE, OTHER | END 2021-02-01 10:13 | disposition home or self-care (01) | LOC: NS 10:12 | PROVIDERS: ATTEND Nurse Practitioner | DX: Z71.3 Dietary counseling and surveillance (principal); U07.1 COVID-19; E11.9 Type 2 diabetes mellitus without complications; R63.4 Abnormal weight loss; Z68.30 Body mass index [BMI] 30.0-30.9, adult | CPT/HCPCS: 97803 ==

== ENCOUNTER 2021-06-25 07:26 | Outpatient (CLI) | payer MEDICARE, OTHER ==
[2021-06-25 12:10] LABS: BASOPHILS % (AUTO) 0.6 %; EOSINOPHILS # (AUTO) 0.2 10^3/uL (0.0-0.7); HCT - HEMATOCRIT 43.8 % (42.0-52.0); HGB - HEMOGLOBIN 14.8 g/dL (14.0-18.0); LYMPHOCYTES # (AUTO) 2.1 10^3/uL (1.5-3.5); LYMPHOCYTES % (AUTO) 29.8 %; MEAN CORPUSCULAR HEMOGLOBIN 31.7 pg (27.0-31.0); MEAN CORPUSCULAR HGB CONC 33.8 g/dL (32.0-36.0); MEAN CORPUSCULAR VOLUME 93.8 fL (80.0-94.0); MEAN PLATELET VOLUME 10.9 fL (7.4-11.4); MONOCYTES # (AUTO) 0.6 10^3/uL (0.0-1.0); MONOCYTES % (AUTO) 8.3 %; NEUTROPHILS % (AUTO) 56.7 %; PLT - PLATELET COUNT 237 10^3/uL (130-450); RED BLOOD COUNT 4.67 10^6/uL (4.70-6.10); RED CELL DISTRIBUTION WIDTH 13.5 % (12.0-15.0); WHITE BLOOD COUNT 7.1 x10^3/uL (4.8-10.8)
[2021-06-25 12:46] LABS: THYROID STIMULATING HORMONE 5.35 uIU/mL (0.34-5.60)
[2021-06-25 12:51] LABS: ALBUMIN 4.2 g/dL (3.2-5.5); ALBUMIN/GLOBULIN RATIO 1.3 (1.0-2.2); ALKALINE PHOSPHATASE 46 IU/L (42-121); ALT ALANINE AMINOTRANSFERASE 21 IU/L (10-60); AST ASPARTATE AMINOTRANSFERASE 18 IU/L (10-42); BILIRUBIN,TOTAL 0.9 mg/dL (0.2-1.0); BUN - BLOOD UREA NITROGEN 22 mg/dL (6-20); CALCIUM 9.3 mg/dL (8.5-10.3); CARBON DIOXIDE - CO2 27 mmol/L (21-32); CHLORIDE 103 mmol/L (101-111); CHOL/HDL RATIO 3.2 (<5.0); CHOLESTEROL 136 mg/dL; GFR - MDRD 75 (>89); GLUCOSE 149 mg/dL (70-100); HDL CHOLESTEROL 42 mg/dL; LDL CHOLESTEROL,CALCULATED 70 mg/dL; LDL/HDL RATIO 1.7 (<3.6); POTASSIUM 4.2 mmol/L (3.5-5.0); SODIUM 142 mmol/L (135-145); TOTAL PROTEIN 7.5 g/dL (6.7-8.2); TRIGLYCERIDES 119 mg/dL; VLDL CHOLESTEROL 24 mg/dL
[2021-06-25 13:02] LABS: CREATININE,URINE 212.1 mg/dL; MICROALBUMIN,URINE 1.7 mg/dL (0-300.0)
[2021-06-25 13:03] LABS: ESTIMATED AVERAGE GLUCOSE 137 mg/dL (70-100); HEMOGLOBIN A1c% 6.4 % (4.27-6.07)
== END 2021-06-25 07:27 | disposition home or self-care (01) ==
LOC: LAB.N 07:26
PROVIDERS: ATTEND Nurse Practitioner
DX: J96.21 Acute and chronic respiratory failure with hypoxia (principal); E11.9 Type 2 diabetes mellitus without complications; J44.9 Chronic obstructive pulmonary disease, unspecified; K21.9 Gastro-esophageal reflux disease without esophagitis; Z12.5 Encounter for screening for malignant neoplasm of prostate; R41.3 Other amnesia; E78.5 Hyperlipidemia, unspecified; R94.6 Abnormal results of thyroid function studies
CPT/HCPCS: 36415; 80053; 80061; 82043; 82570; 83036; 84443; 85025; G0103; 83721; 84153

== ENCOUNTER 2022-06-24 07:31 | Outpatient (CLI) | payer MEDICARE, OTHER ==
[2022-06-24 12:33] LABS: BASOPHILS % (AUTO) 0.6 %; EOSINOPHILS # (AUTO) 0.1 10^3/uL (0.0-0.7); HGB - HEMOGLOBIN 14.5 g/dL (14.0-18.0); LYMPHOCYTES % (AUTO) 30.4 %; MEAN CORPUSCULAR HEMOGLOBIN 31.5 pg (27.0-31.0); MEAN CORPUSCULAR VOLUME 95.7 fL (80.0-94.0); MEAN PLATELET VOLUME 10.7 fL (7.4-11.4); MONOCYTES # (AUTO) 0.6 10^3/uL (0.0-1.0); MONOCYTES % (AUTO) 8.4 %; NEUTROPHILS # (AUTO) 3.8 10^3/uL (1.5-6.6); NEUTROPHILS % (AUTO) 57.7 %; PLT - PLATELET COUNT 254 10^3/uL (130-450); RED CELL DISTRIBUTION WIDTH 13.3 % (12.0-15.0); WHITE BLOOD COUNT 6.5 x10^3/uL (4.8-10.8)
[2022-06-24 13:27] LABS: THYROID STIMULATING HORMONE 6.2 uIU/mL (0.34-5.60)
[2022-06-24 13:37] LABS: ALBUMIN 4.4 g/dL (3.2-5.5); ALBUMIN/GLOBULIN RATIO 1.3 (1.0-2.2); ALKALINE PHOSPHATASE 53 IU/L (42-121); ALT ALANINE AMINOTRANSFERASE 23 IU/L (10-60); AST ASPARTATE AMINOTRANSFERASE 18 IU/L (10-42); BILIRUBIN,TOTAL 0.8 mg/dL (0.2-1.0); BUN - BLOOD UREA NITROGEN 21 mg/dL (6-20); CALCIUM 9.4 mg/dL (8.5-10.3); CARBON DIOXIDE - CO2 27 mmol/L (21-32); CHLORIDE 106 mmol/L (101-111); CHOL/HDL RATIO 5.7 (<5.0); CHOLESTEROL 221 mg/dL; GFR - MDRD 74 (>89); GLUCOSE 144 mg/dL (70-100); HDL CHOLESTEROL 39 mg/dL; LDL CHOLESTEROL,CALCULATED 147 mg/dL; LDL/HDL RATIO 3.8 (<3.6); POTASSIUM 4.3 mmol/L (3.5-5.0); SODIUM 138 mmol/L (135-145); TOTAL PROTEIN 7.8 g/dL (6.7-8.2); TRIGLYCERIDES 177 mg/dL; VLDL CHOLESTEROL 35 mg/dL
[2022-06-24 13:39] LABS: ESTIMATED AVERAGE GLUCOSE 117 mg/dL (70-100); HEMOGLOBIN A1c% 5.7 % (4.27-6.07)
[2022-06-24 16:17] LABS: FREE T4 (FREE THYROXINE) 0.85 ng/dL (0.58-1.64)
== END 2022-06-24 07:32 | disposition home or self-care (01) ==
LOC: LAB.N 07:31
PROVIDERS: ATTEND Nurse Practitioner
DX: E11.9 Type 2 diabetes mellitus without complications (principal); E78.5 Hyperlipidemia, unspecified; R94.6 Abnormal results of thyroid function studies
CPT/HCPCS: 36415; 80053; 80061; 83036; 83721; 84439; 84443; 85025

== ENCOUNTER 2023-02-03 07:08 | Outpatient (CLI) | payer MEDICARE, OTHER ==
[2023-02-03 12:19] LABS: BASOPHILS % (AUTO) 0.6 %; EOSINOPHILS # (AUTO) 0.1 10^3/uL (0.0-0.7); EOSINOPHILS % (AUTO) 2.1 %; HCT - HEMATOCRIT 44.9 % (42.0-52.0); HGB - HEMOGLOBIN 14.9 g/dL (14.0-18.0); LYMPHOCYTES % (AUTO) 32.1 %; MEAN CORPUSCULAR HEMOGLOBIN 31.6 pg (27.0-31.0); MEAN CORPUSCULAR HGB CONC 33.2 g/dL (32.0-36.0); MEAN CORPUSCULAR VOLUME 95.3 fL (80.0-94.0); MEAN PLATELET VOLUME 10.8 fL (7.4-11.4); MONOCYTES # (AUTO) 0.5 10^3/uL (0.0-1.0); MONOCYTES % (AUTO) 8.8 %; NEUTROPHILS # (AUTO) 3.4 10^3/uL (1.5-6.6); NEUTROPHILS % (AUTO) 54.5 %; PLT - PLATELET COUNT 238 10^3/uL (130-450); RED BLOOD COUNT 4.71 10^6/uL (4.70-6.10); RED CELL DISTRIBUTION WIDTH 12.5 % (12.0-15.0); WHITE BLOOD COUNT 6.2 x10^3/uL (4.8-10.8)
[2023-02-03 12:31] LABS: ALBUMIN/GLOBULIN RATIO 1.9 (1.0-2.2); ALKALINE PHOSPHATASE 59 IU/L (42-121); ALT ALANINE AMINOTRANSFERASE 25 IU/L (10-60); AST ASPARTATE AMINOTRANSFERASE 17 IU/L (10-42); BILIRUBIN,TOTAL 0.7 mg/dL (0.2-1.0); BUN - BLOOD UREA NITROGEN 23 mg/dL (6-20); CARBON DIOXIDE - CO2 29 mmol/L (21-32); CHLORIDE 102 mmol/L (101-111); CHOL/HDL RATIO 6.1 (<5.0); CHOLESTEROL 262 mg/dL; CREATININE 1.3 mg/dL (0.6-1.3); ESTIMATED AVERAGE GLUCOSE 143 mg/dL (70-100); GFR - MDRD 55 (>89); GLUCOSE 150 mg/dL (74-104); HDL CHOLESTEROL 43 mg/dL; HEMOGLOBIN A1c% 6.6 % (4.27-6.07); LDL CHOLESTEROL,CALCULATED 169 mg/dL; LDL/HDL RATIO 3.9 (<3.6); POTASSIUM 4.3 mmol/L (3.5-4.5); SODIUM 136 mmol/L (135-145); TOTAL PROTEIN 7.6 g/dL (6.4-8.9); TRIGLYCERIDES 251 mg/dL (48-352); VLDL CHOLESTEROL 50 mg/dL
[2023-02-03 12:45] LABS: THYROID STIMULATING HORMONE 9.67 uIU/mL (0.34-5.60)
== END 2023-02-03 07:09 | disposition home or self-care (01) ==
LOC: LAB.N 07:08
PROVIDERS: ATTEND Physician Assistant Medical
DX: E11.9 Type 2 diabetes mellitus without complications (principal); E78.5 Hyperlipidemia, unspecified; E03.9 Hypothyroidism, unspecified; K21.9 Gastro-esophageal reflux disease without esophagitis
CPT/HCPCS: 36415; 80053; 80061; 83036; 83721; 84439; 84443; 85025

== ENCOUNTER 2023-02-03 10:23 | Outpatient (CLI) | payer MEDICARE, OTHER | END 2023-02-03 10:24 | disposition home or self-care (01) | LOC: LAB 10:23 | PROVIDERS: ATTEND Nurse Practitioner | DX: R41.89 Other symptoms and signs involving cognitive functions and awareness (principal); E11.9 Type 2 diabetes mellitus without complications; E78.5 Hyperlipidemia, unspecified; E03.8 Other specified hypothyroidism; K21.9 Gastro-esophageal reflux disease without esophagitis | CPT/HCPCS: 36415; 80053; 80061; 82140; 83036; 83721; 84439; 84443; 85025 ==

== ENCOUNTER 2023-06-30 08:54 | Outpatient (CLI) | payer MEDICARE, OTHER ==
[2023-06-30 12:21] LABS: ESTIMATED AVERAGE GLUCOSE 148 mg/dL (70-100); HEMOGLOBIN A1c% 6.8 % (4.27-6.07)
[2023-06-30 12:35] LABS: CREATININE,URINE 43.7 mg/dL
[2023-06-30 12:39] LABS: MICROALBUMIN,URINE < 0.7 mg/dL
[2023-06-30 12:42] LABS: CHOLESTEROL 223 mg/dL; HDL CHOLESTEROL 45 mg/dL; LDL CHOLESTEROL,CALCULATED 139 mg/dL; LDL/HDL RATIO 3.1 (<3.6); TRIGLYCERIDES 194 mg/dL (48-352); VLDL CHOLESTEROL 39 mg/dL
== END 2023-06-30 08:55 | disposition home or self-care (01) ==
LOC: LAB.N 08:54
PROVIDERS: ATTEND Nurse Practitioner
DX: Z51.81 Encounter for therapeutic drug level monitoring (principal); E78.5 Hyperlipidemia, unspecified; E11.9 Type 2 diabetes mellitus without complications
CPT/HCPCS: 36415; 80061; 82043; 82570; 83036; 83721